=== PATIENT | male | born 1955 | race Caucasian/White ===

== ENCOUNTER 2017-04-28 05:47 | Emergency (ER) | payer SELFPAY ==
--- NOTE | 2017-04-28 12:58 | RAD ---
PORTABLE CHEST: COMPARISON: Multiple previous chest x-rays dating to 09/10/13. FINDINGS: Heart size is within normal limits. There are atherosclerotic changes of the aorta. There are chron ic interstitial fibrotic lung changes. There is a right posterolateral old 5th rib fracture. The ap pearance of this is similar to the previous exams and appears to represent an incompletely healed fra cture. It has a slightly lytic appearance but given the fact that this is stable as compared to the old exams, it is not felt to be of any definite significance. IMPRESSION: Chronic interstitial fibrotic lung change. POS: [facility]
== END 2017-04-28 11:20 | disposition home or self-care (01) ==
LOC: ERS 05:47
DX: J40 Bronchitis, not specified as acute or chronic (principal); J44.9 Chronic obstructive pulmonary disease, unspecified; I10 Essential (primary) hypertension; I48.91 Unspecified atrial fibrillation; E11.9 Type 2 diabetes mellitus without complications; F90.9 Attention-deficit hyperactivity disorder, unspecified type; F17.210 Nicotine dependence, cigarettes, uncomplicated
CPT/HCPCS: 71020; 99406

== ENCOUNTER 2017-05-22 06:57 | Emergency (ER) | payer SELFPAY ==
--- NOTE | 2017-05-22 08:22 | RAD ---
PA AND LATERAL VIEWS CHEST: HISTORY: Cough. Chills. COMPARISON: 04/28/2017 FINDINGS: The heart size is normal. The lungs are well expanded with still chronic changes. Old right postero lateral fifth rib fracture is again seen. No lobar consolidations, pneumothoraces, or pleural effusi ons are seen. IMPRESSION: Chronic changes. No acute process. POS: [facility]
== END 2017-05-22 10:07 | disposition home or self-care (01) ==
LOC: ERS 06:57
DX: J42 Unspecified chronic bronchitis (principal); I10 Essential (primary) hypertension; E11.9 Type 2 diabetes mellitus without complications; F90.9 Attention-deficit hyperactivity disorder, unspecified type; Z71.6 Tobacco abuse counseling; F17.210 Nicotine dependence, cigarettes, uncomplicated; Z79.899 Other long term (current) drug therapy
CPT/HCPCS: 71020; 99406

== ENCOUNTER 2017-05-23 19:35 | Emergency (ER) | payer SELFPAY | END 2017-05-23 21:08 | disposition home or self-care (01) | LOC: ERS 19:35 | DX: J42 Unspecified chronic bronchitis (principal); I10 Essential (primary) hypertension; I48.91 Unspecified atrial fibrillation; E11.9 Type 2 diabetes mellitus without complications; F90.9 Attention-deficit hyperactivity disorder, unspecified type; F17.210 Nicotine dependence, cigarettes, uncomplicated | CPT/HCPCS: 99406 ==

== ENCOUNTER 2017-06-19 08:10 | Emergency (ER) | payer SELFPAY | END 2017-06-19 09:58 | disposition home or self-care (01) | LOC: ERS 08:10 | DX: K05.10 Chronic gingivitis, plaque induced (principal); I10 Essential (primary) hypertension; I48.91 Unspecified atrial fibrillation; E11.9 Type 2 diabetes mellitus without complications; F90.9 Attention-deficit hyperactivity disorder, unspecified type; F17.210 Nicotine dependence, cigarettes, uncomplicated | CPT/HCPCS: 99406 ==

== ENCOUNTER 2017-06-23 20:20 | Emergency (ER) | payer SELFPAY ==
[2017-06-23] MEDS ORDERED: Insulin Regular 300 UNITS/3 ML VIAL ONE (20:46)
[2017-06-23 21:19] LABS: #Eosinphils 0.1 thou/uL (0.0-0.7); #Lymphocytes 1.7 thou/uL (1.20-3.40); #Monocytes 0.2 thou/uL (0.11-0.59); #Neutrophils 3.3 thou/uL (1.40-6.50); %Basophils 0.8 % (0.0-1.0); %Eosinophils 2.3 % (0.0-10.0); %Lymphocytes 32.5 % (21.0-51.0); %Monocytes 3.9 % (0.0-10.0); %Neutrophils 60.6 % (42.0-75.0); Hemoglobin 14.4 g/dL (14.0-18.0); Mean Corpuscular Volume 97.1 fl (80.0-94.0); Mean Platelet Volume 7.6 fL (7.4-10.4); Platelet Count 135 thou/uL (130-400); RBC Distribution Width 12.4 % (11.5-14.5); Red Blood Cell (RBC) Count 4.35 mill/uL (4.70-6.10); White Blood Cell (WBC) Count 5.4 thou/uL (4.8-10.8)
[2017-06-23] MEDS ORDERED: Acetaminophen 500 MG TAB ONE (21:28)
[2017-06-23 21:40] LABS: ALT (SGPT) 20 U/L (8-55); AST (SGOT) 15 U/L (5-34); Albumin 3.5 g/dL (3.4-4.8); Alkaline Phosphatase 64 U/L (40-150); Anion Gap 11 mmol/L (10-20); BUN (Urea Nitrogen) 18 mg/dL (8.4-25.7); Bilirubin, Total 0.4 mg/dL (0.2-1.2); Calc. Creatinine Clearance 0 mL/min (70-130); Calcium 8.3 mg/dL (7.8-10.44); Carbon Dioxide 26 mmol/L (23-31); Chloride 102 mmol/L (98-107); Estimated GFR-MDRD 83; Globulin 2.5 g/dL (2.4-3.5); Glucose 253 mg/dL (80-115); Lipase 14 U/L (8-78); Potassium 3.9 mmol/L (3.5-5.1); Sodium 135 mmol/L (136-145)
== END 2017-06-23 22:35 | disposition home or self-care (01) ==
LOC: ERS 20:20
DX: E11.65 Type 2 diabetes mellitus with hyperglycemia (principal); I10 Essential (primary) hypertension; I48.91 Unspecified atrial fibrillation; F90.9 Attention-deficit hyperactivity disorder, unspecified type; F17.210 Nicotine dependence, cigarettes, uncomplicated; Z79.899 Other long term (current) drug therapy; Z79.84 Long term (current) use of oral hypoglycemic drugs
CPT/HCPCS: 36415; 36416; 80053; 82140; 83690; 85025; 93005; 96374; J1815

== ENCOUNTER 2017-12-06 19:44 | Emergency (ER) | payer SELFPAY ==
[~2017-12-06 19:44] MED LIST: ISOVUE-370 76%-LOCM 1 ML ONE
[2017-12-06 20:40] LABS: #Eosinphils 0.1 thou/uL (0.0-0.7); #Lymphocytes 0.7 thou/uL (1.20-3.40); #Monocytes 0.6 thou/uL (0.11-0.59); #Neutrophils 6.7 thou/uL (1.40-6.50); %Basophils 0.1 % (0.0-1.0); %Eosinophils 0.8 % (0.0-10.0); %Lymphocytes 8.9 % (21.0-51.0); %Monocytes 7.7 % (0.0-10.0); %Neutrophils 82.4 % (42.0-75.0); Hemoglobin 14.3 g/dL (14.0-18.0); Mean Corpuscular HGB CONC 34.3 g/dL (32.0-36.0); Mean Corpuscular Hemoglobin 32.1 pg (27.0-31.0); Mean Corpuscular Volume 93.5 fL (78.0-98.0); Mean Platelet Volume 7.6 fL (7.4-10.4); Platelet Count 101 thou/uL (130-400); RBC Distribution Width 11.4 % (11.5-14.5); Red Blood Cell (RBC) Count 4.45 mill/uL (4.70-6.10); White Blood Cell (WBC) Count 8.2 thou/uL (4.8-10.8)
[2017-12-06 20:48] LABS: ALT (SGPT) 33 U/L (8-55); AST (SGOT) 25 U/L (5-34); Albumin 3.7 g/dL (3.4-4.8); Alkaline Phosphatase 63 U/L (40-150); Anion Gap 12 mmol/L (10-20); BUN (Urea Nitrogen) 22 mg/dL (8.4-25.7); Bilirubin, Total 0.6 mg/dL (0.2-1.2); CK (CPK) 436 U/L (30-200); Calc. Creatinine Clearance 0 mL/min (70-130); Calcium 9.1 mg/dL (7.8-10.44); Carbon Dioxide 26 mmol/L (23-31); Chloride 100 mmol/L (98-107); Estimated GFR-MDRD 69; Globulin 2.9 g/dL (2.4-3.5); Glucose 369 mg/dL (80-115); Potassium 4.2 mmol/L (3.5-5.1); Protein, Total 6.6 g/dL (5.8-8.1); Sodium 134 mmol/L (136-145)
[2017-12-06 20:51] LABS: Large Platelets SLIGHT; MDiff Complete? YES; PLT Morphology Comment Appears Decreased; RBC Morphology Normal; Troponin I Less than 0.010 ng/mL (< 0.028)
--- NOTE | 2017-12-06 20:51 | RAD ---
AP VIEW CHEST: 12/06/17 HISTORY: Left sided chest pain. AP view chest is obtained on 12/06/17. COMPARISON: Comparison made to previous exam from 02/08/17. AP view chest demonstrates EKG leads see over the chest. Pulmonary vascular congestion seen. Air spac e opacities and prominent interstitial markings throughout the lungs. Some of this may represent poss ible interstitial fibrotic changes. No significant interval changes seen since the previous compariso n exam. No newly developed opacities seen. No evidence of pneumothorax seen. IMPRESSION: Prominent lung parenchymal markings; however, this is unchanged since the previous exam. No acute int erval changes seen. POS: [facility]
[2017-12-06 20:58] LABS: CKMB 7.7 ng/mL (0-6.6)
[2017-12-06] MEDS ORDERED: Azithromycin 250 MG TAB ONE (21:21)
[2017-12-06] MEDS ORDERED: Albuterol Sulfate 2.5 mg/3 ml Neb ONE (21:25)
[2017-12-06] MEDS ORDERED: Ketorolac Tromethamine 30 MG/ML VIAL ONE (21:41)
--- NOTE | 2017-12-06 21:47 | CT ---
CTA CHEST 12/06/17 HISTORY: 62-year-old presents with history of left sided chest pain radiating to left flank since yesterday mo rning. The patient reports being short of breath. Contrast enhanced CTA of the chest was performed. 2D and 3D reconstructed images performed on an [employer] 3D workstation. CT images chest demonstrate no evidence of pleural or pericardial effusions. No evidence of filling defects seen in the pulmonary arteries to suggest pulmonary emboli. Extensive interstitial densities seen throughout the lung parenchyma worse on the left than on the ri ght. These interstitial markings are compatible with chronic interstitial fibrosis worse than on the previous comparison exam from 2015. The degree of interstitial change and honeycombing has increased. Incidentally noted calcifications seen in the left main coronary artery. IMPRESSION: Increased interstitial markings throughout the lungs compatible with interstitial fibrosis. POS: [facility]
== END 2017-12-06 23:18 | disposition home or self-care (01) ==
LOC: ERS 19:44
DX: J44.1 Chronic obstructive pulmonary disease with (acute) exacerbation (principal); I10 Essential (primary) hypertension; D69.6 Thrombocytopenia, unspecified; E11.9 Type 2 diabetes mellitus without complications; F90.9 Attention-deficit hyperactivity disorder, unspecified type; F17.210 Nicotine dependence, cigarettes, uncomplicated; Z79.84 Long term (current) use of oral hypoglycemic drugs; Z79.899 Other long term (current) drug therapy
CPT/HCPCS: 71045; 71275; 80053; 82550; 82553; 83880; 84484; 85025; 93005; 94640; 96374; J1885; J7611; J7620

== ENCOUNTER 2017-12-31 20:24 | Emergency (ER) | payer SELFPAY ==
[2017-12-31] MEDS ORDERED: Lidocaine 1% 20 ML MDV ONE (20:35)
[2017-12-31] MEDS ORDERED: Adacel (T-DAP) 0.5 ML VIAL ONE (20:50)
== END 2017-12-31 21:07 | disposition home or self-care (01) ==
LOC: SCSER 20:24
DX: S61.303A Unspecified open wound of left middle finger with damage to nail, initial encounter (principal); J44.9 Chronic obstructive pulmonary disease, unspecified; I10 Essential (primary) hypertension; E11.9 Type 2 diabetes mellitus without complications; F90.9 Attention-deficit hyperactivity disorder, unspecified type; I48.91 Unspecified atrial fibrillation; F17.210 Nicotine dependence, cigarettes, uncomplicated; Z79.84 Long term (current) use of oral hypoglycemic drugs; Z79.899 Other long term (current) drug therapy; W26.0XXA Contact with knife, initial encounter
CPT/HCPCS: 90471; 90715; J2001

== ENCOUNTER 2018-10-01 19:44 | Emergency (ER) | payer SELFPAY ==
[2018-10-01] MEDS ORDERED: Ketorolac Tromethamine 30 MG/ML VIAL ONE (20:39)
[2018-10-01] MEDS ORDERED: Dexamethasone 10 MG/ML VIAL ONE (20:39)
--- NOTE | 2018-10-01 20:46 | RAD ---
XR Chest Pa Lat STANDARD History: [Cough] Comparison: Chest radiograph 2018 Findings: There is pulmonary fibrosis in the lower lobes. Lungs are hypoinflated. Cardiac silhouette and mediastinal contours are similar. Impression: Progressive pulmonary fibrosis.
== END 2018-10-01 21:35 | disposition home or self-care (01) ==
LOC: ERS 19:44
DX: M54.5 Low back pain (principal); R51 Headache; J84.10 Pulmonary fibrosis, unspecified; I48.91 Unspecified atrial fibrillation; E11.9 Type 2 diabetes mellitus without complications; E87.1 Hypo-osmolality and hyponatremia; F90.9 Attention-deficit hyperactivity disorder, unspecified type; F17.210 Nicotine dependence, cigarettes, uncomplicated; Z79.51 Long term (current) use of inhaled steroids; Z79.899 Other long term (current) drug therapy
CPT/HCPCS: 71046; 96372; J1100; J1885

== ENCOUNTER 2019-02-12 16:28 | Emergency (ER) | payer SELFPAY ==
--- NOTE | 2019-02-12 17:55 | RAD ---
EXAM: 2 views of the right tibia/fibula HISTORY: Right leg swelling for one month COMPARISON: None FINDINGS: There is no evidence of acute fracture or dislocation. No soft tissue swelling is seen. Mod erate degenerative changes are seen in the ankle. Surgical clips are seen in the right leg from the knee down to the ankle. IMPRESSION: No evidence of acute osseous abnormality.
--- NOTE | 2019-02-12 18:17 | ULT ---
EXAM: Right lower extremity venous ultrasound HISTORY: Right lower extremity pain COMPARISON: None TECHNIQUE: Multiplanar grayscale and color Doppler images were obtained in a right lower extremity ve nous ultrasound. Spectral analysis of the Doppler waveforms were performed. FINDINGS: The common femoral vein, profunda femoral vein, superficial femoral vein, and popliteal vei n are normal in appearance without visible thrombus. These vessels demonstrate normal compression, flow, and augmentation. The posterior tibial vein and greater saphenous vein are patent without evidence of thrombus. IMPRESSION: No evidence of DVT.
== END 2019-02-12 19:09 | disposition home or self-care (01) ==
LOC: ERS 16:28
DX: M79.89 Other specified soft tissue disorders (principal); I10 Essential (primary) hypertension; I48.91 Unspecified atrial fibrillation; E11.9 Type 2 diabetes mellitus without complications; F90.9 Attention-deficit hyperactivity disorder, unspecified type; F17.210 Nicotine dependence, cigarettes, uncomplicated

== ENCOUNTER 2019-04-27 10:06 | Emergency (ER) | payer SELFPAY ==
--- NOTE | 2019-04-27 10:59 | RAD ---
XR Elbow Lt 4 View STANDARD HISTORY: Left elbow pain FINDINGS: No fracture or dislocation is identified.
--- NOTE | 2019-04-27 11:00 | RAD ---
LEFT HUMERUS 2 VIEWS: HISTORY: left elbow pain, pain in the distal lateral aspect of the left arm FINDINGS: The left humerus is intact.
== END 2019-04-27 12:39 | disposition home or self-care (01) ==
LOC: ERS 10:06
DX: M25.522 Pain in left elbow (principal); J44.9 Chronic obstructive pulmonary disease, unspecified; I48.21 Permanent atrial fibrillation; E11.9 Type 2 diabetes mellitus without complications; F90.9 Attention-deficit hyperactivity disorder, unspecified type; F17.210 Nicotine dependence, cigarettes, uncomplicated

== ENCOUNTER 2019-10-02 17:38 | Emergency (ER) | payer OTHER, SELFPAY ==
--- NOTE | 2019-10-02 18:56 | RAD ---
PORTABLE CHEST: 10/02/19 PROVIDED CLINICAL HISTORY: Cough and shortness of breath. FINDINGS: Comparison 10/01/18. The cardiac and mediastinal silhouette is unchanged in appearance. Fibrotic lung changes are redemons trated. Possible left infrahilar airspace disease. No pleural fluid or pneumothorax apparent. IMPRESSION: Extensive interstitial lung changes are redemonstrated. There is possible superimposed air space dise ase in the right lower lung zone. Correlate with concerns for pneumonia. Follow-up is recommended. POS: [facility]
== END 2019-10-02 19:21 | disposition home or self-care (01) ==
LOC: ERS 17:38
DX: J18.9 Pneumonia, unspecified organism (principal); J44.9 Chronic obstructive pulmonary disease, unspecified; I10 Essential (primary) hypertension; I48.91 Unspecified atrial fibrillation; E87.1 Hypo-osmolality and hyponatremia; D69.6 Thrombocytopenia, unspecified; E11.9 Type 2 diabetes mellitus without complications; F90.9 Attention-deficit hyperactivity disorder, unspecified type; F17.210 Nicotine dependence, cigarettes, uncomplicated
CPT/HCPCS: 71045

== ENCOUNTER 2019-12-12 19:40 | Emergency (ER) | payer OTHER, SELFPAY ==
[2019-12-13 12:29] LABS: SARS-CoV-2 MS2 Positive; SARS-CoV-2 N Gene Negative; SARS-CoV-2 S Gene Negative; SARS-CoV-2 orf1ab Negative
== END 2019-12-12 20:07 | disposition home or self-care (01) ==
LOC: ERS 19:40
DX: R51 Headache (principal); R53.83 Other fatigue; Z20.828 Contact with and (suspected) exposure to other viral communicable diseases; J44.9 Chronic obstructive pulmonary disease, unspecified; I10 Essential (primary) hypertension; I48.91 Unspecified atrial fibrillation; E11.9 Type 2 diabetes mellitus without complications; F90.9 Attention-deficit hyperactivity disorder, unspecified type; F17.210 Nicotine dependence, cigarettes, uncomplicated; Z79.51 Long term (current) use of inhaled steroids
CPT/HCPCS: 87635; 99284; U0003

== ENCOUNTER 2020-07-25 16:21 | Emergency (ER) | payer OTHER, SELFPAY ==
[2020-07-25 17:33] LABS: #Basophils 0.1 thou/uL (0.0-0.2); #Eosinphils 0.2 thou/uL (0.0-0.7); #Lymphocytes 2.3 thou/uL (1.20-3.40); #Monocytes 0.8 thou/uL (0.11-0.59); #Neutrophils 5.8 thou/uL (1.40-6.50); %Basophils 0.6 % (0.0-1.0); %Eosinophils 2.3 % (0.0-10.0); %Lymphocytes 25.3 % (21.0-51.0); %Monocytes 8.7 % (0.0-10.0); %Neutrophils 63.1 % (42.0-75.0); Mean Corpuscular Hemoglobin 32.7 pg (27.0-31.0); Mean Corpuscular Volume 96.3 fL (78.0-98.0); Mean Platelet Volume 7.7 fL (7.4-10.4); Platelet Count 152 thou/uL (130-400); RBC Distribution Width 12.1 % (11.5-14.5); Red Blood Cell (RBC) Count 5.21 mill/uL (4.70-6.10); White Blood Cell (WBC) Count 9.2 thou/uL (4.8-10.8)
[2020-07-25 17:37] LABS: ALT (SGPT) 40 U/L (8-55); AST (SGOT) 20 U/L (5-34); Albumin 3.7 g/dL (3.4-4.8); Alkaline Phosphatase 58 U/L (40-110); Anion Gap 14 mmol/L (10-20); BUN (Urea Nitrogen) 34 mg/dL (8.4-25.7); Bilirubin, Total 0.6 mg/dL (0.2-1.2); Calc. Creatinine Clearance 0 mL/min (70-130); Calcium 9.3 mg/dL (7.8-10.44); Carbon Dioxide 26 mmol/L (23-31); Chloride 95 mmol/L (98-107); Globulin 3.2 g/dL (2.4-3.5); Glucose 267 mg/dL (80-115); Potassium 4.3 mmol/L (3.5-5.1); Protein, Total 6.9 g/dL (5.8-8.1); Sodium 131 mmol/L (136-145)
--- NOTE | 2020-07-25 17:56 | RAD ---
CHEST TWO VIEWS: History: Cough Comparison: 01-06-2020 FINDINGS: Patient has known prior interstitial lung changes which have been noted previously. Diffuse interstit ial thickening with areas of nodular opacity in both lungs appear stable. No consolidation or focal i nfiltrate. Superimposed interstitial process cannot be completely excluded. IMPRESSION: Chronic interstitial changes are again noted with no definite acute process apparent when compared to prior study. POS: [facility]
[2020-07-25] MEDS ORDERED: predniSONE 20 MG TAB ONE (18:24)
[2020-07-25] MEDS ORDERED: Albuterol 200 PUFF (6.7GM INHALER) ONE (19:11)
[2020-07-26 01:55] LABS: SARS-CoV-2 PCR by NAA Not Detected (NotDetected)
== END 2020-07-25 19:44 | disposition home or self-care (01) ==
LOC: ERS 16:21
DX: J44.1 Chronic obstructive pulmonary disease with (acute) exacerbation (principal); E11.65 Type 2 diabetes mellitus with hyperglycemia; E87.1 Hypo-osmolality and hyponatremia; Z20.822 Contact with and (suspected) exposure to COVID-19; I10 Essential (primary) hypertension; I48.91 Unspecified atrial fibrillation; Z86.718 Personal history of other venous thrombosis and embolism; F17.210 Nicotine dependence, cigarettes, uncomplicated; Z79.84 Long term (current) use of oral hypoglycemic drugs; Z79.899 Other long term (current) drug therapy
CPT/HCPCS: 36415; 71046; 80053; 85025; 87635; 94664; J7512; U0003; U0005

== ENCOUNTER 2021-05-18 11:55 | Outpatient (CLI) | payer MEDICARE, OTHER ==
[2021-05-18 22:44] LABS: SARS-CoV-2 PCR by NAA Not Detected (NotDetected)
== END 2021-05-18 11:56 | disposition home or self-care (01) ==
LOC: LABBT 11:55
PROVIDERS: ATTEND Ophthalmology Retina Specialist
DX: Z01.812 Encounter for preprocedural laboratory examination (principal); Z20.822 Contact with and (suspected) exposure to COVID-19
CPT/HCPCS: U0003; U0005

== ENCOUNTER 2021-05-23 06:14 | Day surgery (SDC) | payer OTHER ==
[2021-05-23] MEDS ORDERED: Fentanyl 100 MCG/2 ML VIAL ONE (06:22)
[2021-05-23] MEDS ORDERED: Midazolam HCl 2 mg/2 ml Vial ONE (06:22)
[2021-05-23] MEDS ORDERED: Phenylephrine 2.5% Ophth Soln 5 ML BOT ONE (06:26)
[2021-05-23] MEDS ORDERED: Cyclopentolate 1% Opth Drop 2 ML BOT ONE (06:26)
[2021-05-23] MEDS ORDERED: EPINEPHrine 0.3 MG in Ophthalmic Irrigation Solution 500 ML IRR SCH (07:00)
== END 2021-05-23 07:58 | disposition home or self-care (01) ==
LOC: SDC 06:14
PROVIDERS: ATTEND Ophthalmology Retina Specialist
DX: H43.391 Other vitreous opacities, right eye (principal); Z53.8 Procedure and treatment not carried out for other reasons; Z88.5 Allergy status to narcotic agent
CPT/HCPCS: J0171; J2250; J3010

== ENCOUNTER 2021-10-17 17:11 | Emergency (ER) | payer MEDICARE, MEDICAID, OTHER | END 2021-10-17 19:24 | disposition home or self-care (01) | LOC: ERS 17:11 | DX: R07.89 Other chest pain (principal); I10 Essential (primary) hypertension; E11.9 Type 2 diabetes mellitus without complications; J44.9 Chronic obstructive pulmonary disease, unspecified; I48.91 Unspecified atrial fibrillation; F17.210 Nicotine dependence, cigarettes, uncomplicated; D69.6 Thrombocytopenia, unspecified | CPT/HCPCS: 71046; 99283 ==

== ENCOUNTER 2022-03-21 17:59 | Observation (INO) | payer MEDICARE, MEDICAID ==
[~2022-03-21 17:59] MED LIST changes: -ISOVUE-370 76%-LOCM 1 ML ONE; +Iopamidol-370 76% 500 ML 1 ML ONE
[2022-03-21 20:30] LABS: #Eosinphils 0.2 thou/uL (0.0-0.7); #Lymphocytes 1.9 thou/uL (1.20-3.40); #Monocytes 0.6 thou/uL (0.11-0.59); #Neutrophils 4.3 thou/uL (1.40-6.50); %Basophils 0.5 % (0.0-1.0); %Eosinophils 2.2 % (0.0-10.0); %Lymphocytes 26.9 % (21.0-51.0); %Monocytes 8.7 % (0.0-10.0); %Neutrophils 61.6 % (42.0-75.0); Hemoglobin 16.5 g/dL (14.0-18.0); Mean Corpuscular HGB CONC 32.8 g/dL (32.0-36.0); Mean Corpuscular Hemoglobin 33.4 pg (27.0-31.0); Mean Platelet Volume 7.7 fL (7.4-10.4); Platelet Count 140 thou/uL (130-400); RBC Distribution Width 11.8 % (11.5-14.5); Red Blood Cell (RBC) Count 4.93 mill/uL (4.70-6.10); White Blood Cell (WBC) Count 6.9 thou/uL (4.8-10.8)
[2022-03-21 20:52] LABS: ALT (SGPT) 54 U/L (8-55); AST (SGOT) 53 U/L (5-34); Alkaline Phosphatase 69 U/L (40-110); Anion Gap 15 mmol/L (10-20); BUN (Urea Nitrogen) 30 mg/dL (8.4-25.7); Bilirubin, Total 0.6 mg/dL (0.2-1.2); Calc. Creatinine Clearance 0 mL/min (70-130); Calcium 9.4 mg/dL (7.8-10.44); Carbon Dioxide 27 mmol/L (23-31); Chloride 99 mmol/L (98-107); Estimated GFR 95; Globulin 3.2 g/dL (2.4-3.5); Glucose 96 mg/dL (80-115); Protein, Total 7.2 g/dL (5.8-8.1); Sodium 137 mmol/L (136-145)
[2022-03-21] MEDS ORDERED: Ondansetron ODT 4 MG TAB PO PRN (23:33)
[2022-03-21] MEDS ORDERED: Acetaminophen 650 MG Suppository PR PRN (23:33)
[2022-03-21] MEDS ORDERED: Ondansetron PF 4 MG/2 ML Vial IVP PRN (23:33)
[2022-03-21] MEDS ORDERED: Dextrose 50% Abboject 50 ML SYRINGE SLOW IVP PRN (23:33)
[2022-03-21] MEDS ORDERED: Dextrose 5% in Water 1,000 ML IV PRN (23:33)
[2022-03-21] MEDS ORDERED: Acetaminophen 325 MG TAB PO PRN (23:33)
[2022-03-21] MEDS ORDERED: HumaLOG 300 UNITS/3 ML VIAL SC PRN (23:33)
[2022-03-22] MEDS: Ketorolac Tromethamine 30 MG/ML VIAL IVP PRN ×2 (01:07→10:04)
[2022-03-22 03:02] VITALS: BMI 23.0
[2022-03-22 06:35] LABS: #Eosinphils 0.2 thou/uL (0.0-0.7); #Lymphocytes 1.6 thou/uL (1.20-3.40); #Monocytes 0.7 thou/uL (0.11-0.59); #Neutrophils 3.3 thou/uL (1.40-6.50); %Basophils 0.5 % (0.0-1.0); %Lymphocytes 27.6 % (21.0-51.0); %Monocytes 11.9 % (0.0-10.0); Hemoglobin 15.6 g/dL (14.0-18.0); Mean Corpuscular HGB CONC 32.5 g/dL (32.0-36.0); Mean Corpuscular Hemoglobin 33.6 pg (27.0-31.0); Mean Platelet Volume 7.8 fL (7.4-10.4); Platelet Count 127 thou/uL (130-400); RBC Distribution Width 11.8 % (11.5-14.5); Red Blood Cell (RBC) Count 4.64 mill/uL (4.70-6.10); White Blood Cell (WBC) Count 5.8 thou/uL (4.8-10.8)
[2022-03-22 06:56] LABS: Anion Gap 10 mmol/L (10-20); BUN (Urea Nitrogen) 29 mg/dL (8.4-25.7); Calc. Creatinine Clearance 72 mL/min (70-130); Calcium 8.7 mg/dL (7.8-10.44); Carbon Dioxide 30 mmol/L (23-31); Chloride 99 mmol/L (98-107); Estimated GFR 77; Glucose 107 mg/dL (80-115); Potassium 4.3 mmol/L (3.5-5.1); Sodium 135 mmol/L (136-145)
[2022-03-22] MEDS: Enoxaparin Sodium 40 MG/0.4 ML SYRINGE SC SCH (07:55)
[2022-03-22] MEDS: Cyanocobalamin (Vitamin B-12) 1,000 MCG TAB PO SCH (10:01)
[2022-03-22] MEDS: Morphine 4 MG/ML VIAL SLOW IVP PRN ×2 (13:17→22:24)
[2022-03-22] MEDS ORDERED: traMADol HCl 50 MG TAB PO PRN (17:03)
[2022-03-22] MEDS: HumaLOG 300 UNITS/3 ML VIAL SC PRN (17:13)
[2022-03-22] MEDS ORDERED: Temazepam 15 MG CAP PO PRN (19:29)
[2022-03-22] MEDS: Senokot S 8.6-50 MG TAB PO SCH (20:53)
[2022-03-22] MEDS ORDERED: Atorvastatin Calcium 20 MG TAB PO SCH (21:00)
[2022-03-23 03:17] VITALS: TEMP 98.6
[2022-03-23] MEDS ORDERED: Heparin 10,000 UNITS/ 10 ML VIAL ONE (06:36)
[2022-03-23] MEDS ORDERED: Lidocaine 1% (PF) 30 ML VIAL ONE (06:36)
[2022-03-23 06:44] LABS: Anion Gap 9 mmol/L (10-20); BUN (Urea Nitrogen) 22 mg/dL (8.4-25.7); Calc. Creatinine Clearance 87 mL/min (70-130); Calcium 8.9 mg/dL (7.8-10.44); Carbon Dioxide 30 mmol/L (23-31); Chloride 100 mmol/L (98-107); Estimated GFR 95; Glucose 146 mg/dL (80-115); Potassium 4.2 mmol/L (3.5-5.1); Sodium 135 mmol/L (136-145)
[2022-03-23 07:39] LABS: #Eosinphils 0.1 thou/uL (0.0-0.7); #Lymphocytes 1.3 thou/uL (1.20-3.40); #Monocytes 0.6 thou/uL (0.11-0.59); #Neutrophils 2.8 thou/uL (1.40-6.50); %Basophils 0.3 % (0.0-1.0); %Eosinophils 2.8 % (0.0-10.0); %Lymphocytes 26.7 % (21.0-51.0); %Monocytes 11.9 % (0.0-10.0); %Neutrophils 58.3 % (42.0-75.0); Hemoglobin 15.4 g/dL (14.0-18.0); Mean Corpuscular HGB CONC 32.3 g/dL (32.0-36.0); Mean Corpuscular Hemoglobin 33.2 pg (27.0-31.0); Mean Platelet Volume 8.1 fL (7.4-10.4); Platelet Count 113 thou/uL (130-400); RBC Distribution Width 11.7 % (11.5-14.5); Red Blood Cell (RBC) Count 4.65 mill/uL (4.70-6.10); White Blood Cell (WBC) Count 4.9 thou/uL (4.8-10.8)
[2022-03-23] MEDS: Senokot S 8.6-50 MG TAB PO SCH (08:15)
[2022-03-23] MEDS: Cyanocobalamin (Vitamin B-12) 1,000 MCG TAB PO SCH (08:17)
[2022-03-23] MEDS: Enoxaparin Sodium 40 MG/0.4 ML SYRINGE SC SCH ×2 (08:17→08:24)
[2022-03-23] MEDS ORDERED: Lisinopril 10 MG TAB PO SCH (09:00)
[2022-03-23] MEDS ORDERED: Folic Acid 1 MG TAB PO SCH (09:00)
[2022-03-23] MEDS ORDERED: Aspirin Chewable 81 MG TAB PO SCH (09:00)
[2022-03-23] MEDS ORDERED: Multivit, Therapeutic 1 TAB PO SCH (09:00)
[2022-03-23] MEDS ORDERED: Aspirin 81 mg Enteric Coated Tablet PO SCH (09:00)
[2022-03-23] MEDS ORDERED: Lisinopril/Hydrochlorothiazide 20/25 mg Tablet PO SCH (09:00)
[2022-03-23] MEDS ORDERED: Iopamidol 370 76% 50 ML VIAL FS ONE (09:55)
[2022-03-23] MEDS: HumaLOG 300 UNITS/3 ML VIAL SC PRN (12:06)
[2022-03-23 12:38] VITALS: BP 133/74
[2022-03-25] MEDS ORDERED: FLU VACC QS2022-23(65YR UP)/PF 240 MCG/0.7 ML SYRINGE IM ONE (09:00)
== END 2022-03-23 14:32 | disposition home or self-care (01) ==
LOC: ERS 17:59 → T4-A 23:18
PROVIDERS: ADMIT Internal Medicine; ATTEND Internal Medicine
PROC: B41F1ZZ Fluoroscopy of Right Lower Extremity Arteries using Low Osmolar Contrast (ICD-10-PCS; principal; 2022-03-23)
DX: E11.51 Type 2 diabetes mellitus with diabetic peripheral angiopathy without gangrene (principal); I70.203 Unspecified atherosclerosis of native arteries of extremities, bilateral legs; I48.91 Unspecified atrial fibrillation; F17.210 Nicotine dependence, cigarettes, uncomplicated; J44.9 Chronic obstructive pulmonary disease, unspecified; I70.0 Atherosclerosis of aorta; I25.10 Atherosclerotic heart disease of native coronary artery without angina pectoris; E78.5 Hyperlipidemia, unspecified; D69.6 Thrombocytopenia, unspecified; E87.1 Hypo-osmolality and hyponatremia; I10 Essential (primary) hypertension; Z79.84 Long term (current) use of oral hypoglycemic drugs; Z79.899 Other long term (current) drug therapy; Z88.8 Allergy status to other drugs, medicaments and biological substances; Z88.5 Allergy status to narcotic agent; Z89.411 Acquired absence of right great toe; Z95.820 Peripheral vascular angioplasty status with implants and grafts; Z20.822 Contact with and (suspected) exposure to COVID-19
CPT/HCPCS: 36140; 36245; 75635; 75710; 80048 ×2; 80053; 82962 ×2; 85025 ×3; 85379; 93923; 93971; 96372; 96374; 96375; 99285; C1769 ×2; C1894 ×2; G0378 ×3; U0003; U0005; 36415; 36416; J1644; J1650; J1815; J1885; J2001; J2270; Q9967

== ENCOUNTER 2022-07-24 07:53 | Outpatient (CLI) | payer OTHER, MEDICAID | END 2022-07-24 07:54 | disposition home or self-care (01) | LOC: TBSIIMAG 07:53 | PROVIDERS: ATTEND Nurse Practitioner Family | DX: Z01.89 Encounter for other specified special examinations (principal) | CPT/HCPCS: 70551 ==

== ENCOUNTER 2022-09-20 06:02 | Inpatient (IN) | payer OTHER ==
[2022-09-20] MEDS ORDERED: Ketorolac Tromethamine 30 MG/ML VIAL ONE (07:42)
[2022-09-20] MEDS ORDERED: Ondansetron PF 4 MG/2 ML Vial IVP PRN (12:46)
[2022-09-20] MEDS ORDERED: Dextrose 5% in Water 1,000 ML IV PRN (12:46)
[2022-09-20] MEDS ORDERED: Dextrose 50% Abboject 50 ML SYRINGE SLOW IVP PRN (12:46)
[2022-09-20] MEDS: Mometasone 200 MCG/Formoterol 5 MCG 120 PUFF INHALER INH SCH (19:38)
[2022-09-20 19:53] VITALS: BMI 26.4
[2022-09-20] MEDS: HYDROcodone/Acetaminophen 7.5/325 mg Tablet PO PRN (19:57)
[2022-09-20] MEDS: Temazepam 15 MG CAP PO SCH (19:57)
[2022-09-20] MEDS: metFORMIN 500 MG TAB PO SCH (19:57)
[2022-09-20] MEDS: Morphine 4 MG/ML VIAL SLOW IVP PRN (21:19)
[2022-09-21] MEDS: HYDROcodone/Acetaminophen 7.5/325 mg Tablet PO PRN ×4 (04:25→20:31)
[2022-09-21] MEDS: Morphine 4 MG/ML VIAL SLOW IVP PRN ×4 (04:25→22:24)
[2022-09-21] MEDS: Nicotine 21 MG PATCH TD SCH (05:36)
[2022-09-21 06:48] LABS: ALT (SGPT) 33 U/L (8-55); AST (SGOT) 24 U/L (5-34); Albumin 3.3 g/dL (3.4-4.8); Alkaline Phosphatase 55 U/L (40-110); Anion Gap 14 mmol/L (10-20); BUN (Urea Nitrogen) 20 mg/dL (8.4-25.7); Bilirubin, Total 0.5 mg/dL (0.2-1.2); Calc. Creatinine Clearance 92 mL/min (70-130); Calcium 8.7 mg/dL (7.8-10.44); Carbon Dioxide 31 mmol/L (23-31); Chloride 96 mmol/L (98-107); Estimated GFR 91; Globulin 2.8 g/dL (2.4-3.5); Glucose 139 mg/dL (80-115); Potassium 4.3 mmol/L (3.5-5.1); Protein, Total 6.1 g/dL (5.8-8.1); Sodium 137 mmol/L (136-145)
[2022-09-21] MEDS ORDERED: Fioricet 325/50/40 mg Tablet PO PRN (07:26)
[2022-09-21] MEDS: Mometasone 200 MCG/Formoterol 5 MCG 120 PUFF INHALER INH SCH ×2 (07:31→20:08)
[2022-09-21] MEDS ORDERED: Nystatin 100,000 Units/mL UDCUP SSW SCH (09:00)
[2022-09-21] MEDS ORDERED: Non-Formulary Item 1 EACH (Vitamin B Complex [Vitamin B Complex] 1 EACH Tablet) PO SCH (09:00)
[2022-09-21] MEDS ORDERED: Aspirin Chewable 81 MG TAB PO SCH (09:00)
[2022-09-21] MEDS ORDERED: VITAMIN E MIXED 1000 UNIT PO SCH (09:00)
[2022-09-21] MEDS ORDERED: NICOTINE TD SCH (09:00)
[2022-09-21] MEDS: Nystatin 500,000 UNITS/5 ML UDCUP SSW SCH ×4 (09:17→20:33)
[2022-09-21] MEDS: Cyanocobalamin (Vitamin B-12) 1,000 MCG TAB PO SCH (09:17)
[2022-09-21] MEDS: Multivitamin w/Zinc Stress 1 TAB PO SCH (09:17)
[2022-09-21] MEDS: Lisinopril/Hydrochlorothiazide 20/25 mg Tablet PO SCH (09:17)
[2022-09-21] MEDS: glipiZIDE 10 MG TAB PO SCH (09:18)
[2022-09-21] MEDS: Atorvastatin Calcium 10 MG TAB PO SCH (09:18)
[2022-09-21] MEDS: Cholecalciferol (Vitamin D3) 400 UNITS TAB PO SCH (09:18)
[2022-09-21] MEDS: CO Q-10 CAPSULE 100 MG PO SCH (09:18)
[2022-09-21] MEDS: metFORMIN 500 MG TAB PO SCH ×2 (09:18→16:30)
[2022-09-21] MEDS ORDERED: CEFAZOLIN 2 GM in Sodium Chloride 0.9% 100 ML IVPB SCH (09:30)
[2022-09-21] MEDS ORDERED: Magnevist 469MG/ML 20 ML VIAL ONE (10:45)
[2022-09-21] MEDS: HumaLOG 300 UNITS/3 ML VIAL SC PRN (12:54)
[2022-09-21] MEDS: Acetaminophen 325 MG TAB PO PRN (20:31)
[2022-09-21] MEDS: Temazepam 15 MG CAP PO SCH (20:31)
[2022-09-22] MEDS: HYDROcodone/Acetaminophen 7.5/325 mg Tablet PO PRN ×4 (05:49→20:05)
[2022-09-22] MEDS: Nicotine 21 MG PATCH TD SCH (05:49)
[2022-09-22] MEDS ORDERED: Sodium Chloride 0.9% 500 ML IV SCH (06:15)
[2022-09-22] MEDS ORDERED: Acetaminophen 500 MG TAB PO SCH (06:15)
[2022-09-22] MEDS: Morphine 4 MG/ML VIAL SLOW IVP PRN ×3 (06:20→18:26)
[2022-09-22 06:41] LABS: Hemoglobin 19.3 g/dL (14.0-18.0); Mean Corpuscular HGB CONC 35.8 g/dL (32.0-36.0); Mean Corpuscular Hemoglobin 35.8 pg (27.0-31.0); Mean Corpuscular Volume 99.9 fl (78.0-98.0); White Blood Cell (WBC) Count 13.9 10x3/uL (4.8-10.8)
[2022-09-22 06:44] LABS: Lactic Acid 2.4 mmol/L (0.5-2.2)
[2022-09-22 06:47] LABS: ALT (SGPT) 34 U/L (8-55); AST (SGOT) 23 U/L (5-34); Albumin 3.9 g/dL (3.4-4.8); Alkaline Phosphatase 69 U/L (40-110); Anion Gap 17 mmol/L (10-20); BUN (Urea Nitrogen) 21 mg/dL (8.4-25.7); Bilirubin, Total 1.2 mg/dL (0.2-1.2); Calc. Creatinine Clearance 88 mL/min (70-130); Calcium 9.9 mg/dL (7.8-10.44); Carbon Dioxide 30 mmol/L (23-31); Chloride 91 mmol/L (98-107); Estimated GFR 87; Globulin 3.6 g/dL (2.4-3.5); Glucose 183 mg/dL (80-115); Magnesium 1.4 mg/dL (1.6-2.6); Potassium 4.7 mmol/L (3.5-5.1); Protein, Total 7.5 g/dL (5.8-8.1); Sodium 133 mmol/L (136-145)
[2022-09-22 06:53] LABS: Band 2 % (5-11); Eosinophils 1 % (0-10); Lymphocytes 7 % (21-51); MDiff Complete? YES; Macrocytosis SLIGHT = 6-15 cells (100X) (0-5/hpf); Mean Platelet Volume 8.5 fL (7.4-10.4); Monocytes 5 % (0-10); Neutrophil 85 % (42-75); Ovalocytes SLIGHT = 2-5 cells (100X) (0-1/hpf); Platelet Count 116 10x3/uL (130-400); Platelet Morphology Comment Appears Decreased; RBC Distribution Width 12.1 % (11.5-14.5)
[2022-09-22] MEDS ORDERED: Magnesium 2 GM/50 ML(in water) 2 GM in Premix Bag 1 BAG IVPB SCH (07:30)
[2022-09-22] MEDS ORDERED: Magnesium Sulfate 2 GM in Sodium Chloride 0.9% 100 ML IVPB SCH (07:30)
[2022-09-22 07:51] LABS: Bacteria/HPF None Seen HPF (None Seen); Bilirubin Negative (Negative); Blood, Urine Negative (Negative); CAUTI Indications for Culture Fever or rigors; Clarity Clear (Clear); Glucose, Urine (Dipstick) Normal (Negative); Ketone, Urine 20 mg/dL (Negative); Leukocyte Negative Leu/uL (Negative); Nitrite Negative (Negative); Protein, Urine (Dipstick) 70 mg/dL (Neg-Trace); RBC/HPF 0-3 HPF (0-3); Specific Gravity, Urine 1.028 (1.002-1.036); Squamous Epithelial 0-3 HPF (0-3); WBC/HPF 0-3 HPF (0-3); pH, Urine 6.5 (5.0-9.0)
[2022-09-22] MEDS: Mometasone 200 MCG/Formoterol 5 MCG 120 PUFF INHALER INH SCH ×2 (08:00→19:03)
[2022-09-22] MEDS ORDERED: Cefepime 1 GM in Sodium Chloride 0.9% 100 ML IVPB SCH ×2 (08:00→09:00)
[2022-09-22 08:09] LABS: Urine Culture Reflex No No
[2022-09-22] MEDS: CO Q-10 CAPSULE 100 MG PO SCH (08:53)
[2022-09-22] MEDS: glipiZIDE 10 MG TAB PO SCH (08:53)
[2022-09-22] MEDS: Multivitamin w/Zinc Stress 1 TAB PO SCH (08:53)
[2022-09-22] MEDS: Atorvastatin Calcium 10 MG TAB PO SCH (08:53)
[2022-09-22] MEDS: Cholecalciferol (Vitamin D3) 400 UNITS TAB PO SCH (08:53)
[2022-09-22] MEDS: Lisinopril/Hydrochlorothiazide 20/25 mg Tablet PO SCH (08:53)
[2022-09-22] MEDS: Cyanocobalamin (Vitamin B-12) 1,000 MCG TAB PO SCH (08:53)
[2022-09-22] MEDS: Sodium Chloride 0.9% 1,000 ML IV SCH ×2 (08:54→16:07)
[2022-09-22] MEDS: VANCOMYCIN 1.25 GM/250 ML BAG 1.25 GM in Premix Bag 1 BAG IVPB SCH ×2 (09:57→21:31)
[2022-09-22] MEDS: Nystatin 500,000 UNITS/5 ML UDCUP SSW SCH ×4 (09:57→20:04)
[2022-09-22 11:01] LABS: SARS-CoV-2 NAA Rapid Test Not Detected (NotDetected)
[2022-09-22] MEDS: HumaLOG 300 UNITS/3 ML VIAL SC PRN (14:03)
[2022-09-22] MEDS: Temazepam 15 MG CAP PO SCH (20:05)
[2022-09-22] MEDS: Cefepime 2 GM in Sodium Chloride 0.9% 100 ML IVPB SCH (20:05)
[2022-09-23] MEDS: Morphine 4 MG/ML VIAL SLOW IVP PRN (04:36)
[2022-09-23] MEDS: Sodium Chloride 0.9% 1,000 ML IV SCH ×3 (04:37→17:57)
[2022-09-23] MEDS: Nicotine 21 MG PATCH TD SCH (05:19)
[2022-09-23] MEDS: HumaLOG 300 UNITS/3 ML VIAL SC PRN ×4 (06:12→21:22)
[2022-09-23] MEDS: Lisinopril/Hydrochlorothiazide 20/25 mg Tablet PO SCH (08:34)
[2022-09-23] MEDS: VANCOMYCIN 1.25 GM/250 ML BAG 1.25 GM in Premix Bag 1 BAG IVPB SCH (08:34)
[2022-09-23] MEDS: Cefepime 2 GM in Sodium Chloride 0.9% 100 ML IVPB SCH ×2 (08:34→20:17)
[2022-09-23] MEDS: Nystatin 500,000 UNITS/5 ML UDCUP SSW SCH ×4 (08:34→20:15)
[2022-09-23] MEDS: Mometasone 200 MCG/Formoterol 5 MCG 120 PUFF INHALER INH SCH ×2 (09:07→18:31)
[2022-09-23] MEDS ORDERED: fentaNYL PF 100 MCG/2 ML SYRINGE ONE (10:41)
[2022-09-23] MEDS ORDERED: Lidocaine 1% PF 5 ML VIAL ONE (11:12)
[2022-09-23] MEDS ORDERED: Glycopyrrolate 0.2 MG/ML 5 ML SYRINGE ONE (11:12)
[2022-09-23] MEDS ORDERED: Ondansetron PF 4 MG/2 ML Vial ONE (11:12)
[2022-09-23] MEDS ORDERED: PROPOFOL 200 MG/20 ML VIAL ONE (11:12)
[2022-09-23] MEDS ORDERED: Dexamethasone 20 MG/5 ML VIAL ONE (11:12)
[2022-09-23] MEDS ORDERED: NEOSTIGMINE 3 MG/3 ML SYR 3 MG/3 ML SYRINGE ONE (11:12)
[2022-09-23] MEDS ORDERED: PHENYLEPHRINE-NS 100 MCG/ML 10 ML SYRINGE ONE (11:12)
[2022-09-23] MEDS ORDERED: Rocuronium Bromide 10 MG/ML (10ML VIAL) ONE (11:12)
[2022-09-23] MEDS ORDERED: Promethazine HCl 25 MG/ML VIAL IM PRN (12:08)
[2022-09-23] MEDS ORDERED: Ondansetron HCl/PF 4 MG/2 ML Vial IVP PRN (12:08)
[2022-09-23] MEDS ORDERED: fentaNYL 50 mcg/mL 1 mL Vial ONE ×2 (12:22→12:35)
[2022-09-23] MEDS: Cyanocobalamin (Vitamin B-12) 1,000 MCG TAB PO SCH (13:19)
[2022-09-23] MEDS: glipiZIDE 10 MG TAB PO SCH (13:19)
[2022-09-23] MEDS: Atorvastatin Calcium 10 MG TAB PO SCH (13:19)
[2022-09-23] MEDS: Cholecalciferol (Vitamin D3) 400 UNITS TAB PO SCH (13:19)
[2022-09-23] MEDS: Multivitamin w/Zinc Stress 1 TAB PO SCH (13:20)
[2022-09-23] MEDS: CO Q-10 CAPSULE 100 MG PO SCH (13:20)
[2022-09-23] MEDS ORDERED: HYDROcodone/Acetaminophen 10/325 mg Tablet PO PRN (13:47)
[2022-09-23] MEDS ORDERED: CEFAZOLIN 2 GM in Sodium Chloride 0.9% 100 ML IVPB SCH (14:00)
[2022-09-23] MEDS: HYDROcodone/Acetaminophen 10/325 mg Tablet PO PRN ×3 (14:08→22:02)
[2022-09-23] MEDS: Temazepam 15 MG CAP PO SCH (20:15)
[2022-09-23 20:39] LABS: Vancomycin, Trough 10.3 ug/mL
[2022-09-23] MEDS: VANCOMYCIN 1.75 GM/500 ML BAG 1.75 GM in Premix Bag 1 BAG IVPB SCH (21:23)
[2022-09-24] MEDS: Sodium Chloride 0.9% 1,000 ML IV SCH ×2 (02:16→11:58)
[2022-09-24] MEDS: HYDROcodone/Acetaminophen 10/325 mg Tablet PO PRN ×5 (04:02→21:52)
[2022-09-24] MEDS: Nicotine 21 MG PATCH TD SCH (05:14)
[2022-09-24] MEDS: HumaLOG 300 UNITS/3 ML VIAL SC PRN ×4 (06:04→21:55)
[2022-09-24] MEDS: Mometasone 200 MCG/Formoterol 5 MCG 120 PUFF INHALER INH SCH ×2 (06:49→19:05)
[2022-09-24 07:02] LABS: #Lymphocytes 0.5 thou/uL (1.20-3.40); #Monocytes 0.5 thou/uL (0.11-0.59); #Neutrophils 6.7 thou/uL (1.40-6.50); %Basophils 0.2 % (0.0-1.0); %Eosinophils 0.1 % (0.0-10.0); %Lymphocytes 6.1 % (21.0-51.0); %Monocytes 6.7 % (0.0-10.0); Hemoglobin 14.1 g/dL (14.0-18.0); Mean Corpuscular HGB CONC 35.6 g/dL (32.0-36.0); Mean Corpuscular Hemoglobin 35.5 pg (27.0-31.0); Mean Corpuscular Volume 99.6 fl (78.0-98.0); Platelet Count 97 10x3/uL (130-400); RBC Distribution Width 11.6 % (11.5-14.5); Red Blood Cell (RBC) Count 3.96 mill/uL (4.70-6.10); White Blood Cell (WBC) Count 7.8 10x3/uL (4.8-10.8)
[2022-09-24 07:12] LABS: Anion Gap 13 mmol/L (10-20); BUN (Urea Nitrogen) 22 mg/dL (8.4-25.7); Calc. Creatinine Clearance 110 mL/min (70-130); Carbon Dioxide 25 mmol/L (23-31); Chloride 99 mmol/L (98-107); Estimated GFR 98; Glucose 267 mg/dL (80-115); Potassium 5.2 mmol/L (3.5-5.1); Sodium 132 mmol/L (136-145)
[2022-09-24] MEDS: Cefepime 2 GM in Sodium Chloride 0.9% 100 ML IVPB SCH ×2 (08:03→20:56)
[2022-09-24] MEDS: glipiZIDE 10 MG TAB PO SCH (08:05)
[2022-09-24] MEDS: Lisinopril/Hydrochlorothiazide 20/25 mg Tablet PO SCH (08:05)
[2022-09-24] MEDS: Cyanocobalamin (Vitamin B-12) 1,000 MCG TAB PO SCH (08:05)
[2022-09-24] MEDS: Multivitamin w/Zinc Stress 1 TAB PO SCH (08:05)
[2022-09-24] MEDS: CO Q-10 CAPSULE 100 MG PO SCH (08:05)
[2022-09-24] MEDS: Atorvastatin Calcium 10 MG TAB PO SCH (08:05)
[2022-09-24] MEDS: Nystatin 500,000 UNITS/5 ML UDCUP SSW SCH ×4 (08:05→20:53)
[2022-09-24] MEDS: Cholecalciferol (Vitamin D3) 400 UNITS TAB PO SCH (08:05)
[2022-09-24] MEDS: VANCOMYCIN 1.75 GM/500 ML BAG 1.75 GM in Premix Bag 1 BAG IVPB SCH (09:07)
[2022-09-24] MEDS: Morphine 4 MG/ML VIAL SLOW IVP PRN (13:40)
[2022-09-24] MEDS ORDERED: diphenhydrAMINE 25 MG CAP PO SCH (20:00)
[2022-09-24] MEDS: Temazepam 15 MG CAP PO SCH (20:53)
[2022-09-25] MEDS: HYDROcodone/Acetaminophen 10/325 mg Tablet PO PRN ×4 (04:57→20:09)
[2022-09-25] MEDS: Nicotine 21 MG PATCH TD SCH (05:00)
[2022-09-25] MEDS: HumaLOG 300 UNITS/3 ML VIAL SC PRN ×4 (05:43→20:15)
[2022-09-25 06:20] LABS: #Eosinphils 0.2 thou/uL (0.0-0.7); #Lymphocytes 0.9 thou/uL (1.20-3.40); #Monocytes 0.6 thou/uL (0.11-0.59); #Neutrophils 4.8 thou/uL (1.40-6.50); %Basophils 0.4 % (0.0-1.0); %Eosinophils 3.6 % (0.0-10.0); %Lymphocytes 14.2 % (21.0-51.0); %Monocytes 8.7 % (0.0-10.0); Hemoglobin 13.5 g/dL (14.0-18.0); Mean Corpuscular HGB CONC 33.8 g/dL (32.0-36.0); Mean Corpuscular Hemoglobin 33.9 pg (27.0-31.0); Mean Platelet Volume 8.5 fL (7.4-10.4); Platelet Count 104 10x3/uL (130-400); RBC Distribution Width 11.6 % (11.5-14.5); Red Blood Cell (RBC) Count 3.98 mill/uL (4.70-6.10); White Blood Cell (WBC) Count 6.6 10x3/uL (4.8-10.8)
[2022-09-25 06:34] LABS: Anion Gap 11 mmol/L (10-20); BUN (Urea Nitrogen) 17 mg/dL (8.4-25.7); CRP (Inflammatory) 3.51 mg/dL (= or < 0.5); Calc. Creatinine Clearance 114 mL/min (70-130); Calcium 8.6 mg/dL (7.8-10.44); Carbon Dioxide 30 mmol/L (23-31); Chloride 98 mmol/L (98-107); Estimated GFR 99; Glucose 235 mg/dL (80-115); Potassium 4.5 mmol/L (3.5-5.1); Sodium 134 mmol/L (136-145)
[2022-09-25] MEDS: Cefepime 2 GM in Sodium Chloride 0.9% 100 ML IVPB SCH (08:30)
[2022-09-25] MEDS: Cholecalciferol (Vitamin D3) 400 UNITS TAB PO SCH (08:31)
[2022-09-25] MEDS: Nystatin 500,000 UNITS/5 ML UDCUP SSW SCH ×4 (08:31→20:12)
[2022-09-25] MEDS: Multivitamin w/Zinc Stress 1 TAB PO SCH (08:31)
[2022-09-25] MEDS: Lisinopril/Hydrochlorothiazide 20/25 mg Tablet PO SCH (08:31)
[2022-09-25] MEDS: glipiZIDE 10 MG TAB PO SCH (08:31)
[2022-09-25] MEDS: Atorvastatin Calcium 10 MG TAB PO SCH (08:31)
[2022-09-25] MEDS: Cyanocobalamin (Vitamin B-12) 1,000 MCG TAB PO SCH (08:31)
[2022-09-25] MEDS: Mometasone 200 MCG/Formoterol 5 MCG 120 PUFF INHALER INH SCH ×2 (08:32→19:07)
[2022-09-25] MEDS: CO Q-10 CAPSULE 100 MG PO SCH (08:32)
[2022-09-25] MEDS: Acetaminophen 325 MG TAB PO PRN (12:13)
[2022-09-25] MEDS: Temazepam 15 MG CAP PO SCH (20:09)
[2022-09-26] MEDS: HYDROcodone/Acetaminophen 10/325 mg Tablet PO PRN ×5 (03:40→22:09)
[2022-09-26] MEDS: Nicotine 21 MG PATCH TD SCH (05:27)
[2022-09-26] MEDS: HumaLOG 300 UNITS/3 ML VIAL SC PRN ×4 (05:32→22:10)
[2022-09-26] MEDS: Nystatin 500,000 UNITS/5 ML UDCUP SSW SCH ×4 (08:37→20:13)
[2022-09-26] MEDS: Lisinopril/Hydrochlorothiazide 20/25 mg Tablet PO SCH (08:37)
[2022-09-26] MEDS: Atorvastatin Calcium 10 MG TAB PO SCH (08:37)
[2022-09-26] MEDS: Cholecalciferol (Vitamin D3) 400 UNITS TAB PO SCH (08:37)
[2022-09-26] MEDS: CO Q-10 CAPSULE 100 MG PO SCH (08:37)
[2022-09-26] MEDS: Cyanocobalamin (Vitamin B-12) 1,000 MCG TAB PO SCH (08:37)
[2022-09-26] MEDS: glipiZIDE 10 MG TAB PO SCH (08:37)
[2022-09-26] MEDS: Multivitamin w/Zinc Stress 1 TAB PO SCH (08:37)
[2022-09-26] MEDS: Mometasone 200 MCG/Formoterol 5 MCG 120 PUFF INHALER INH SCH ×2 (08:52→18:38)
[2022-09-26] MEDS: Temazepam 15 MG CAP PO SCH (20:12)
[2022-09-27] MEDS: HYDROcodone/Acetaminophen 10/325 mg Tablet PO PRN ×3 (05:50→17:15)
[2022-09-27] MEDS: Nicotine 21 MG PATCH TD SCH (05:51)
[2022-09-27] MEDS: HumaLOG 300 UNITS/3 ML VIAL SC PRN ×3 (05:54→17:19)
[2022-09-27] MEDS: Mometasone 200 MCG/Formoterol 5 MCG 120 PUFF INHALER INH SCH ×2 (07:34→18:54)
[2022-09-27] MEDS: Lisinopril/Hydrochlorothiazide 20/25 mg Tablet PO SCH (09:43)
[2022-09-27] MEDS: CO Q-10 CAPSULE 100 MG PO SCH (09:43)
[2022-09-27] MEDS: Multivitamin w/Zinc Stress 1 TAB PO SCH (09:44)
[2022-09-27] MEDS: Cyanocobalamin (Vitamin B-12) 1,000 MCG TAB PO SCH (09:44)
[2022-09-27] MEDS: glipiZIDE 10 MG TAB PO SCH (09:44)
[2022-09-27] MEDS: Atorvastatin Calcium 10 MG TAB PO SCH (09:44)
[2022-09-27] MEDS: Cholecalciferol (Vitamin D3) 400 UNITS TAB PO SCH (09:45)
[2022-09-27] MEDS: Nystatin 500,000 UNITS/5 ML UDCUP SSW SCH ×3 (09:45→17:15)
[2022-09-27 17:17] VITALS: BP 124/74; TEMP 97.9
== END 2022-09-27 19:06 | disposition home or self-care (01) | DRG 481 ==
LOC: ERS 06:02 → ERHOLD 12:28 → SURG A 18:26 → OBSVTOIN 09-21 15:57
PROVIDERS: ADMIT Student in an Organized Health Care Education/Training Program; ATTEND Hospitalist
PROC: 0QS704Z Reposition Left Upper Femur with Internal Fixation Device, Open Approach (ICD-10-PCS; principal; 2022-09-23)
DX: S72.002A Fracture of unspecified part of neck of left femur, initial encounter for closed fracture (principal); E87.1 Hypo-osmolality and hyponatremia; Z88.8 Allergy status to other drugs, medicaments and biological substances; E11.51 Type 2 diabetes mellitus with diabetic peripheral angiopathy without gangrene; I10 Essential (primary) hypertension; D69.6 Thrombocytopenia, unspecified; F90.9 Attention-deficit hyperactivity disorder, unspecified type; J44.9 Chronic obstructive pulmonary disease, unspecified; E78.5 Hyperlipidemia, unspecified; F17.210 Nicotine dependence, cigarettes, uncomplicated; Z20.822 Contact with and (suspected) exposure to COVID-19; W01.0XXA Fall on same level from slipping, tripping and stumbling without subsequent striking against object, initial encounter; E11.65 Type 2 diabetes mellitus with hyperglycemia; E87.5 Hyperkalemia; Z79.82 Long term (current) use of aspirin; Z79.899 Other long term (current) drug therapy; Z98.1 Arthrodesis status; Z90.49 Acquired absence of other specified parts of digestive tract
CPT/HCPCS: 36415; 36416; 71045; 72170; 72192; 72197; 80048; 80053; 80202; 81001; 83605; 83735; 84145; 85025; 86140; 87040; 94664; 96372; 96374; 96376; A9579; C1713; G0378; J0692; J1100; J1650; J1815; J1885; J2270; J2405; J2704; J3010; J3370; J3475; J3490; J7030; J7050

== ENCOUNTER 2022-10-06 10:42 | Emergency (ER) | payer OTHER ==
[2022-10-06] MEDS ORDERED: Ketorolac Tromethamine 30 MG/ML VIAL ONE (12:22)
== END 2022-10-06 13:04 | disposition home or self-care (01) ==
LOC: ERS 10:42
DX: M25.552 Pain in left hip (principal); G62.9 Polyneuropathy, unspecified; J44.9 Chronic obstructive pulmonary disease, unspecified; I10 Essential (primary) hypertension; E11.9 Type 2 diabetes mellitus without complications; F17.210 Nicotine dependence, cigarettes, uncomplicated
CPT/HCPCS: 96372; J1885

== ENCOUNTER 2023-06-29 15:28 | Inpatient (IN) | payer OTHER ==
[2023-06-29 16:16] LABS: #Basophils 0.1 thou/uL (0.0-0.2); #Eosinphils 0.1 thou/uL (0.0-0.7); #Monocytes 0.7 thou/uL (0.11-0.59); #Neutrophils 8.5 thou/uL (1.40-6.50); %Basophils 0.4 % (0.0-1.0); %Eosinophils 0.7 % (0.0-10.0); %Lymphocytes 16.4 % (21.0-51.0); %Monocytes 6.2 % (0.0-10.0); Hematocrit 51.8 % (42.0-52.0); Hemoglobin 17.9 g/dL (14.0-18.0); Mean Corpuscular HGB CONC 34.6 g/dL (32.0-36.0); Mean Corpuscular Hemoglobin 33.3 pg (27.0-31.0); Mean Corpuscular Volume 96.5 fl (78.0-98.0); Mean Platelet Volume 10.4 fL (7.4-10.4); Platelet Count 144 10x3/uL (130-400); Red Blood Cell (RBC) Count 5.37 mill/uL (4.70-6.10); White Blood Cell (WBC) Count 11.1 10x3/uL (4.8-10.8)
[2023-06-29 16:42] LABS: ALT (SGPT) 47 U/L (8-55); AST (SGOT) 31 U/L (5-34); Albumin 3.7 g/dL (3.4-4.8); Alkaline Phosphatase 76 U/L (40-110); Anion Gap 12 mmol/L (10-20); BUN (Urea Nitrogen) 30 mg/dL (8.4-25.7); Calc. Creatinine Clearance 0 mL/min (70-130); Calcium 9.2 mg/dL (7.8-10.44); Carbon Dioxide 32 mmol/L (23-31); Chloride 95 mmol/L (98-107); Estimated GFR 69; Globulin 3.2 g/dL (2.4-3.5); Glucose 262 mg/dL (80-115); Potassium 4.5 mmol/L (3.5-5.1); Protein, Total 6.9 g/dL (5.8-8.1); Sodium 134 mmol/L (136-145)
[2023-06-29 16:45] LABS: Troponin I 0.023 ng/mL (< 0.028)
[2023-06-29 17:04] LABS: SARS-CoV-2 NAA Rapid Test Not Detected (NotDetected)
[2023-06-29] MEDS ORDERED: Albuterol 2.5 MG (3 mL) NEB ONE (17:39)
[2023-06-29] MEDS ORDERED: Ipratropium/Albuterol 3 ML NEB ONE (17:39)
[2023-06-29] MEDS ORDERED: Dextrose 5% in Water 1,000 ML IV PRN (18:08)
[2023-06-29] MEDS ORDERED: Ipratropium/Albuterol 3 ML NEB NEB PRN (18:08)
[2023-06-29] MEDS ORDERED: Glucagon 1 MG/ML KIT IM PRN (18:08)
[2023-06-29] MEDS ORDERED: Dextrose 50% Abboject 50 ML SYRINGE SLOW IVP PRN (18:08)
[2023-06-29] MEDS ORDERED: Acetaminophen 325 MG TAB PO PRN (18:08)
[2023-06-29] MEDS ORDERED: predniSONE 20 MG TAB PO SCH (18:30)
[2023-06-29 19:30] LABS: Lactic Acid 1.8 mmol/L (0.5-2.2)
[2023-06-29] MEDS: Nicotine 14 MG PATCH TD SCH (20:01)
[2023-06-29] MEDS: guaiFENesin/Codeine 200 mg/20 mg 10 ml Cup PO PRN (20:02)
[2023-06-29] MEDS: Temazepam 15 MG CAP PO SCH (20:02)
[2023-06-29] MEDS: Famotidine 20 MG TAB PO SCH (20:02)
[2023-06-29 20:15] VITALS: BMI 25.1
[2023-06-29] MEDS: Fioricet 325/50/40 mg Tablet PO PRN (20:27)
[2023-06-29] MEDS: Insulin Regular 300 UNITS/3 ML VIAL SC PRN (22:24)
[2023-06-30] MEDS: guaiFENesin/Codeine 200 mg/20 mg 10 ml Cup PO PRN ×4 (01:31→20:24)
[2023-06-30] MEDS: Fioricet 325/50/40 mg Tablet PO PRN ×4 (01:31→20:24)
[2023-06-30 05:00] LABS: #Monocytes 0.2 thou/uL (0.11-0.59); #Neutrophils 5.4 thou/uL (1.40-6.50); %Basophils 0.2 % (0.0-1.0); %Lymphocytes 8.9 % (21.0-51.0); %Monocytes 2.5 % (0.0-10.0); %Neutrophils 88.1 % (42.0-75.0); Hematocrit 47.1 % (42.0-52.0); Hemoglobin 15.9 g/dL (14.0-18.0); Mean Corpuscular HGB CONC 33.8 g/dL (32.0-36.0); Mean Corpuscular Hemoglobin 33.4 pg (27.0-31.0); Mean Corpuscular Volume 98.9 fl (78.0-98.0); Mean Platelet Volume 10.4 fL (7.4-10.4); Platelet Count 111 10x3/uL (130-400); RBC Distribution Width 11.9 % (11.5-14.5); Red Blood Cell (RBC) Count 4.76 mill/uL (4.70-6.10); White Blood Cell (WBC) Count 6.1 10x3/uL (4.8-10.8)
[2023-06-30 05:22] LABS: Anion Gap 8 mmol/L (10-20); BUN (Urea Nitrogen) 22 mg/dL (8.4-25.7); Calc. Creatinine Clearance 77 mL/min (70-130); Calcium 8.8 mg/dL (7.8-10.44); Carbon Dioxide 32 mmol/L (23-31); Chloride 97 mmol/L (98-107); Estimated GFR 79; Glucose 388 mg/dL (80-115); Potassium 4.9 mmol/L (3.5-5.1); Sodium 132 mmol/L (136-145)
[2023-06-30] MEDS: Insulin Regular 300 UNITS/3 ML VIAL SC PRN (06:50)
[2023-06-30] MEDS: predniSONE 20 MG TAB PO SCH (09:23)
[2023-06-30] MEDS: metFORMIN 500 MG TAB PO SCH ×2 (09:23→17:36)
[2023-06-30] MEDS: Atorvastatin Calcium 10 MG TAB PO SCH (09:23)
[2023-06-30] MEDS: Famotidine 20 MG TAB PO SCH ×2 (09:24→20:24)
[2023-06-30] MEDS ORDERED: Insulin Regular 300 UNITS/3 ML VIAL SC PRN ×2 (11:03)
[2023-06-30] MEDS ORDERED: glipiZIDE 10 MG TAB PO SCH (11:15)
[2023-06-30] MEDS: Nicotine 14 MG PATCH TD SCH (17:36)
[2023-06-30] MEDS: Doxycycline 100 MG CAP PO SCH (20:23)
[2023-06-30] MEDS: Temazepam 15 MG CAP PO SCH (20:24)
[2023-06-30] MEDS: Heparin 5,000 UNITS/ML VIAL SC SCH (20:25)
[2023-07-01] MEDS: Fioricet 325/50/40 mg Tablet PO PRN ×3 (02:42→15:29)
[2023-07-01] MEDS: guaiFENesin/Codeine 200 mg/20 mg 10 ml Cup PO PRN ×3 (02:42→15:29)
[2023-07-01] MEDS: Insulin Regular 300 UNITS/3 ML VIAL SC PRN ×2 (05:07→13:42)
[2023-07-01 05:26] LABS: #Eosinphils 0.1 thou/uL (0.0-0.7); #Monocytes 0.6 thou/uL (0.11-0.59); #Neutrophils 5.2 thou/uL (1.40-6.50); %Basophils 0.2 % (0.0-1.0); %Eosinophils 0.8 % (0.0-10.0); %Lymphocytes 30.4 % (21.0-51.0); %Neutrophils 61.2 % (42.0-75.0); Hematocrit 47.9 % (42.0-52.0); Hemoglobin 16.4 g/dL (14.0-18.0); Mean Corpuscular HGB CONC 34.2 g/dL (32.0-36.0); Mean Corpuscular Hemoglobin 33.5 pg (27.0-31.0); Mean Platelet Volume 10.3 fL (7.4-10.4); Platelet Count 128 10x3/uL (130-400); RBC Distribution Width 11.8 % (11.5-14.5); Red Blood Cell (RBC) Count 4.89 mill/uL (4.70-6.10); White Blood Cell (WBC) Count 8.5 10x3/uL (4.8-10.8)
[2023-07-01 05:52] LABS: Anion Gap 10 mmol/L (10-20); BUN (Urea Nitrogen) 19 mg/dL (8.4-25.7); Calc. Creatinine Clearance 87 mL/min (70-130); Calcium 8.8 mg/dL (7.8-10.44); Carbon Dioxide 32 mmol/L (23-31); Chloride 98 mmol/L (98-107); Estimated GFR 90; Glucose 175 mg/dL (80-115); Magnesium 1.8 mg/dL (1.6-2.6); Potassium 4.2 mmol/L (3.5-5.1); Sodium 136 mmol/L (136-145)
[2023-07-01] MEDS ORDERED: glipiZIDE 10 MG TAB PO SCH (07:30)
[2023-07-01] MEDS: metFORMIN 500 MG TAB PO SCH (08:18)
[2023-07-01] MEDS: Heparin 5,000 UNITS/ML VIAL SC SCH (08:19)
[2023-07-01] MEDS: predniSONE 20 MG TAB PO SCH (08:19)
[2023-07-01] MEDS: Famotidine 20 MG TAB PO SCH (08:19)
[2023-07-01] MEDS: Atorvastatin Calcium 10 MG TAB PO SCH (08:19)
[2023-07-01] MEDS: Doxycycline 100 MG CAP PO SCH (08:19)
[2023-07-01 08:39] VITALS: TEMP 97.8
[2023-07-01] MEDS ORDERED: Magnesium 2 GM/50 ML(in water) 2 GM in Premix 1 BAG IVPB SCH (09:00)
[2023-07-01] MEDS ORDERED: Aspirin 81 mg Enteric Coated Tablet PO SCH (09:00)
[2023-07-01 13:21] VITALS: BP 147/91
== END 2023-07-01 16:05 | disposition home or self-care (01) | DRG 189 ==
LOC: ERS 15:28 → SURG B 17:39 → OBSVTOIN 07-01 08:53
PROVIDERS: ADMIT Internal Medicine; ATTEND Internal Medicine
DX: J96.21 Acute and chronic respiratory failure with hypoxia (principal); J44.1 Chronic obstructive pulmonary disease with (acute) exacerbation; I10 Essential (primary) hypertension; F17.210 Nicotine dependence, cigarettes, uncomplicated; E11.51 Type 2 diabetes mellitus with diabetic peripheral angiopathy without gangrene; I45.10 Unspecified right bundle-branch block; I48.0 Paroxysmal atrial fibrillation; E11.65 Type 2 diabetes mellitus with hyperglycemia; T38.0X5A Adverse effect of glucocorticoids and synthetic analogues, initial encounter; F90.9 Attention-deficit hyperactivity disorder, unspecified type; Z98.890 Other specified postprocedural states; Z90.49 Acquired absence of other specified parts of digestive tract; Z88.8 Allergy status to other drugs, medicaments and biological substances; Z11.52 Encounter for screening for COVID-19; Z79.84 Long term (current) use of oral hypoglycemic drugs; Z79.899 Other long term (current) drug therapy
CPT/HCPCS: 36415; 36416; 71045; 80048; 80053; 83605; 83735; 83880; 84484; 85025; 93005; 96360; G0378; J1815; J3475; J7512; J7611; J7620

== ENCOUNTER 2023-07-20 12:31 | Emergency (ER) | payer OTHER ==
[2023-07-20] MEDS ORDERED: Morphine 4 MG/ML VIAL ONE (13:16)
[2023-07-20] MEDS ORDERED: Ondansetron PF 4 MG/2 ML Vial ONE (13:17)
[2023-07-20 13:29] LABS: #Monocytes 0.6 thou/uL (0.11-0.59); #Neutrophils 5.7 thou/uL (1.40-6.50); %Basophils 0.4 % (0.0-1.0); %Eosinophils 0.5 % (0.0-10.0); %Lymphocytes 17.7 % (21.0-51.0); %Monocytes 7.8 % (0.0-10.0); %Neutrophils 73.3 % (42.0-75.0); Hematocrit 51.5 % (42.0-52.0); Mean Corpuscular Hemoglobin 33.1 pg (27.0-31.0); Mean Corpuscular Volume 94.8 fl (78.0-98.0); Mean Platelet Volume 10.2 fL (7.4-10.4); Platelet Count 161 10x3/uL (130-400); RBC Distribution Width 12.1 % (11.5-14.5); Red Blood Cell (RBC) Count 5.43 mill/uL (4.70-6.10); White Blood Cell (WBC) Count 7.8 10x3/uL (4.8-10.8)
[2023-07-20 13:42] LABS: PTT 33.5 sec (22.9-36.1); Prothrombin Time 13.5 sec (12.0-14.7)
[2023-07-20 13:52] LABS: ALT (SGPT) 45 U/L (8-55); AST (SGOT) 38 U/L (5-34); Albumin 3.7 g/dL (3.4-4.8); Alkaline Phosphatase 76 U/L (40-110); Anion Gap 12 mmol/L (10-20); BUN (Urea Nitrogen) 26 mg/dL (8.4-25.7); Bilirubin, Total 0.9 mg/dL (0.2-1.2); Calc. Creatinine Clearance 0 mL/min (70-130); Calcium 9.1 mg/dL (7.8-10.44); Carbon Dioxide 27 mmol/L (23-31); Chloride 97 mmol/L (98-107); Estimated GFR 82; Globulin 3.4 g/dL (2.4-3.5); Glucose 299 mg/dL (80-115); Potassium 4.6 mmol/L (3.5-5.1); Protein, Total 7.1 g/dL (5.8-8.1); Sodium 131 mmol/L (136-145)
== END 2023-07-20 15:39 | disposition home or self-care (01) ==
LOC: ERS 12:31
DX: M79.604 Pain in right leg (principal); J44.9 Chronic obstructive pulmonary disease, unspecified; I10 Essential (primary) hypertension; I48.91 Unspecified atrial fibrillation; E11.9 Type 2 diabetes mellitus without complications; F17.210 Nicotine dependence, cigarettes, uncomplicated; Z79.84 Long term (current) use of oral hypoglycemic drugs; Z79.899 Other long term (current) drug therapy; Z55.6 Problems related to health literacy
CPT/HCPCS: 80053; 83605; 85025; 85610; 85730; 94760; 96374; 96375; J2270; J2405

== ENCOUNTER 2023-08-07 09:38 | Outpatient (CLI) | payer MEDICARE, OTHER | END 2023-08-07 09:39 | disposition home or self-care (01) | LOC: RAD 09:38 | PROVIDERS: ATTEND Internal Medicine Critical Care Medicine | DX: R06.00 Dyspnea, unspecified (principal); R91.8 Other nonspecific abnormal finding of lung field | CPT/HCPCS: 71046 ==

== ENCOUNTER 2023-08-19 18:14 | Inpatient (IN) | payer OTHER, MEDICAID ==
[~2023-08-19 18:14] MED LIST changes: -Iopamidol-370 76% 500 ML 1 ML ONE; +Iopamidol-370 76% 500 ML MDV (1 ML CHARGE) ONE
[2023-08-19 19:09] LABS: ALT (SGPT) 86 U/L (8-55); AST (SGOT) 62 U/L (5-34); Albumin 4.3 g/dL (3.4-4.8); Alkaline Phosphatase 87 U/L (40-110); Anion Gap 19 mmol/L (10-20); BUN (Urea Nitrogen) 59 mg/dL (8.4-25.7); Bilirubin, Total 1.1 mg/dL (0.2-1.2); Calc. Creatinine Clearance 0 mL/min (70-130); Calcium 10.7 mg/dL (7.8-10.44); Carbon Dioxide 30 mmol/L (23-31); Chloride 84 mmol/L (98-107); Estimated GFR 42; Globulin 3.9 g/dL (2.4-3.5); Glucose 384 mg/dL (80-115); Lipase 33 U/L (8-78); Magnesium 2.5 mg/dL (1.6-2.6); Potassium 4.9 mmol/L (3.5-5.1); Protein, Total 8.2 g/dL (5.8-8.1); Sodium 128 mmol/L (136-145)
[2023-08-19 19:20] LABS: Troponin I 0.034 ng/mL (< 0.028)
[2023-08-19 19:52] LABS: Bacteria/HPF None Seen HPF (None Seen); Bilirubin Negative (Negative); Blood, Urine Negative (Negative); CAUTI Indications for Culture Pelvic or flank pain; Clarity Clear (Clear); Glucose, Urine (Dipstick) Greater than 1000 mg/dL (Negative); Ketone, Urine Negative (Negative); Leukocyte Negative Leu/uL (Negative); Nitrite Negative (Negative); Protein, Urine (Dipstick) Negative (Neg-Trace); RBC/HPF 0-3 HPF (0-3); Specific Gravity, Urine 1.023 (1.002-1.036); Squamous Epithelial None Seen HPF (0-3); Urobilinogen Normal mg/dL (Less than 2); WBC/HPF 0-3 HPF (0-3)
[2023-08-19 19:53] LABS: Urine Culture Reflex No No
[2023-08-19] MEDS ORDERED: Ketorolac Tromethamine 30 MG (1 mL) VIAL ONE (20:42)
[2023-08-19 21:40] LABS: Influenza A by NAA Not Detected (NotDetected); Influenza B by NAA Not Detected (NotDetected); SARS-CoV-2 NAA Rapid Test Not Detected (NotDetected)
[2023-08-19 22:40] LABS: Troponin I 0.039 ng/mL (< 0.028)
[2023-08-19] MEDS ORDERED: Ondansetron PF 4 MG/2 ML Vial IVP PRN (22:51)
[2023-08-19] MEDS ORDERED: Glucagon 1 MG/ML KIT IM PRN (23:03)
[2023-08-19] MEDS ORDERED: Dextrose 5% in Water 1,000 ML IV PRN (23:03)
[2023-08-19] MEDS ORDERED: Dextrose 50% Abboject 50 ML SYRINGE SLOW IVP PRN (23:03)
[2023-08-19] MEDS ORDERED: Ipratropium/Albuterol 3 ML NEB NEB PRN (23:04)
[2023-08-19 23:33] VITALS: BMI 23.5
[2023-08-20] MEDS ORDERED: Albuterol 200 PUFF INH INH PRN (00:10)
[2023-08-20 00:19] LABS: #Basophils 0.05 10x3/uL (0.0-0.2); %Basophils 0.6 % (0.0-1.0); %Eosinophils 1.6 % (0.0-10.0); %Lymphocytes 23.2 % (21.0-51.0); %Monocytes 10.1 % (0.0-10.0); %Neutrophils 64.3 % (42.0-75.0); Hematocrit 53.8 % (42.0-52.0); Hemoglobin 18.7 g/dL (14.0-18.0); Mean Corpuscular HGB CONC 34.8 g/dL (32.0-36.0); Mean Corpuscular Hemoglobin 33.1 pg (27.0-31.0); Mean Corpuscular Volume 95.2 fL (78.0-98.0); Mean Platelet Volume 10.7 fL (7.4-10.4); Platelet Count 146 10x3/uL (130-400); RBC Distribution Width 12.2 % (11.5-14.5); Red Blood Cell (RBC) Count 5.65 mill/uL (4.70-6.10)
[2023-08-20] MEDS: HumaLOG 300 UNITS/3 ML VIAL SC PRN ×2 (00:35→10:03)
[2023-08-20] MEDS: methylPREDNISolone Sod Succ 40 MG VIAL IVP SCH ×2 (00:38→20:51)
[2023-08-20 01:15] LABS: Troponin I 0.045 ng/mL (< 0.028)
[2023-08-20 04:28] LABS: #Basophils Less than 0.03 10x3/uL (0.0-0.2); %Basophils 0.3 % (0.0-1.0); %Eosinophils 0.7 % (0.0-10.0); %Lymphocytes 11.1 % (21.0-51.0); %Monocytes 4.2 % (0.0-10.0); %Neutrophils 83.3 % (42.0-75.0); Hematocrit 55.3 % (42.0-52.0); Hemoglobin 19.3 g/dL (14.0-18.0); Mean Corpuscular HGB CONC 34.9 g/dL (32.0-36.0); Mean Corpuscular Hemoglobin 32.8 pg (27.0-31.0); Mean Platelet Volume 10.6 fL (7.4-10.4); Platelet Count 148 10x3/uL (130-400); Red Blood Cell (RBC) Count 5.88 mill/uL (4.70-6.10)
[2023-08-20 04:40] LABS: Anion Gap 16 mmol/L (10-20); BUN (Urea Nitrogen) 59 mg/dL (8.4-25.7); Calc. Creatinine Clearance 61 mL/min (70-130); Calcium 9.8 mg/dL (7.8-10.44); Carbon Dioxide 27 mmol/L (23-31); Chloride 93 mmol/L (98-107); Estimated GFR 61; Glucose 142 mg/dL (80-115); Potassium 4.3 mmol/L (3.5-5.1); Sodium 132 mmol/L (136-145)
[2023-08-20] MEDS: Enoxaparin 40 MG (0.4 mL) SYRINGE SC SCH (08:31)
[2023-08-20] MEDS: Famotidine 20 MG TAB PO SCH (08:31)
[2023-08-20] MEDS ORDERED: TEMAZEPAM 30 MG PO PRN (08:37)
[2023-08-20] MEDS: glipiZIDE 10 MG TAB PO SCH (09:59)
[2023-08-20] MEDS: Lisinopril 20 MG TAB PO SCH (09:59)
[2023-08-20] MEDS: Hydrochlorothiazide 25 MG TAB PO SCH (09:59)
[2023-08-20] MEDS: Atorvastatin Calcium 10 MG TAB PO SCH (09:59)
[2023-08-20] MEDS: Aspirin 81 mg Enteric Coated Tablet PO SCH (10:00)
[2023-08-20] MEDS: HYDROcodone/Acetaminophen 5/325 mg Tablet PO PRN (10:21)
[2023-08-20 17:38] LABS: Amphetamine Detected (NotDetected); Barbiturates Screen Not Detected (NotDetected); Benzodiazepine Screen Detected (NotDetected); Cocaine Metabolite Screen Not Detected (NotDetected); Methadone Not Detected (NotDetected); Methamphetamine Not Detected (NotDetected); Opiate Screen Detected (NotDetected); Oxycodone Screen Not Detected (NotDetected); Phencyclidine (PCP) Not Detected (NotDetected); THC/Cannabinoid Screen Not Detected (NotDetected); Tricyclic Screen Not Detected (NotDetected)
[2023-08-20] MEDS: Nicotine 14 MG PATCH TD SCH (18:31)
[2023-08-20] MEDS: Mometasone 100 MCG/Formoterol 5 MCG 120 PUFF INHALER INH SCH (19:32)
[2023-08-20 19:40] LABS: Glucose 635 mg/dL (80-115)
[2023-08-20] MEDS: Insulin NPH Human Isophane 100 UNITS/ML (10 ML VIAL) SC SCH (20:47)
[2023-08-20 20:56] LABS: Actual Bicarbonate (HCO3v) 29.8 mEq/L (22-28); Calcium, Ionized (venous) 1.07 mmol/L (1.16-1.32); Chloride (VBG) 84 mmol/L (98-106); Hematocrit-VBG 57 % (42.0-52.0); Hemoglobin (Hb) 19.5 g/dL (12.6-17.4); Potassium (VBG) 4.88 mmol/L (3.70-5.30); Sodium 126 mmol/L (133-146); pH (venous) 7.374 (7.32-7.43)
[2023-08-20] MEDS: Fioricet 325/50/40 mg Tablet PO PRN (21:01)
[2023-08-20] MEDS: Temazepam 15 MG CAP PO PRN (21:08)
[2023-08-20 22:08] LABS: Anion Gap 14 mmol/L (10-20); BUN (Urea Nitrogen) 57 mg/dL (8.4-25.7); Calc. Creatinine Clearance 48 mL/min (70-130); Calcium 9.2 mg/dL (7.8-10.44); Carbon Dioxide 27 mmol/L (23-31); Chloride 87 mmol/L (98-107); Estimated GFR 47; Potassium 4.4 mmol/L (3.5-5.1); Sodium 124 mmol/L (136-145)
[2023-08-20 22:29] LABS: Glucose 568 mg/dL (80-115)
[2023-08-20] MEDS ORDERED: HumaLOG 300 UNITS/3 ML VIAL SC PRN (22:35)
[2023-08-21 04:35] LABS: #Basophils Less than 0.03 10x3/uL (0.0-0.2); #Eosinphils Less than 0.03 10x3/uL (0.0-0.7); %Basophils 0.1 % (0.0-1.0); %Lymphocytes 7.5 % (21.0-51.0); %Monocytes 5.9 % (0.0-10.0); %Neutrophils 85.9 % (42.0-75.0); Hematocrit 54.3 % (42.0-52.0); Hemoglobin 19.5 g/dL (14.0-18.0); Mean Corpuscular HGB CONC 35.9 g/dL (32.0-36.0); Mean Corpuscular Hemoglobin 33.2 pg (27.0-31.0); Mean Corpuscular Volume 92.5 fL (78.0-98.0); Mean Platelet Volume 10.8 fL (7.4-10.4); Platelet Count 148 10x3/uL (130-400); RBC Distribution Width 11.6 % (11.5-14.5); Red Blood Cell (RBC) Count 5.87 mill/uL (4.70-6.10)
[2023-08-21 04:39] LABS: Anion Gap 14 mmol/L (10-20); BUN (Urea Nitrogen) 55 mg/dL (8.4-25.7); Calc. Creatinine Clearance 72 mL/min (70-130); Calcium 9.4 mg/dL (7.8-10.44); Carbon Dioxide 29 mmol/L (23-31); Chloride 91 mmol/L (98-107); Estimated GFR 75; Glucose 213 mg/dL (80-115); Potassium 4.1 mmol/L (3.5-5.1); Sodium 130 mmol/L (136-145)
[2023-08-21] MEDS: VYVANSE 70 MG PO SCH (09:00)
[2023-08-21] MEDS: Gabapentin 300 MG CAP PO SCH (09:48)
[2023-08-21] MEDS: Insulin Glargine 30 UNITS/0.3 ML VIAL SC SCH ×2 (09:50→20:57)
[2023-08-21] MEDS: Empagliflozin 10 MG TAB PO SCH (09:53)
[2023-08-21 10:00] LABS: Hemoglobin A1c 11.2 % (4.0-6.0)
[2023-08-21 12:47] LABS: ANA Symphony (Qualitative) Negative (Negative); ANA Symphony (Quantitative) 0.3 Ratio (< 0.7 Negative); dsDNA IgG Antibody 1.3 IU/mL (<10 Negative)
[2023-08-21] MEDS: HumaLOG 300 UNITS/3 ML VIAL SC PRN (13:30)
[2023-08-21 19:49] LABS: Critical Call Chemistry NUR.KS17 @1949; Glucose 413 mg/dL (80-115)
[2023-08-22] MEDS: predniSONE 20 MG TAB PO SCH (08:58)
[2023-08-22] MEDS: Insulin Glargine 30 UNITS/0.3 ML VIAL SC SCH (09:14)
[2023-08-22 10:24] VITALS: BP 133/92
[2023-08-22 12:33] VITALS: TEMP 98.1
== END 2023-08-22 15:45 | disposition home or self-care (01) | DRG 196 ==
LOC: ERS 18:14 → OBSVTOIN 21:43 → IMCU/EMU 21:43
PROVIDERS: ADMIT Hospitalist; ATTEND Internal Medicine
DX: J84.112 Idiopathic pulmonary fibrosis (principal); J96.21 Acute and chronic respiratory failure with hypoxia; E87.1 Hypo-osmolality and hyponatremia; N17.9 Acute kidney failure, unspecified; E78.5 Hyperlipidemia, unspecified; Z59.00 Homelessness unspecified; E11.65 Type 2 diabetes mellitus with hyperglycemia; E11.51 Type 2 diabetes mellitus with diabetic peripheral angiopathy without gangrene; I27.21 Secondary pulmonary arterial hypertension; F17.200 Nicotine dependence, unspecified, uncomplicated; M54.2 Cervicalgia; I11.0 Hypertensive heart disease with heart failure; I50.9 Heart failure, unspecified; J47.9 Bronchiectasis, uncomplicated; R59.1 Generalized enlarged lymph nodes; G89.4 Chronic pain syndrome; T38.0X5A Adverse effect of glucocorticoids and synthetic analogues, initial encounter; I48.0 Paroxysmal atrial fibrillation; Z79.84 Long term (current) use of oral hypoglycemic drugs; Z79.899 Other long term (current) drug therapy; Z79.82 Long term (current) use of aspirin; Z90.49 Acquired absence of other specified parts of digestive tract
CPT/HCPCS: 36415; 36416; 71045; 71275; 80048; 80053; 80306; 81001; 82010; 82103; 82805; 83036; 83690; 83735; 83880; 84145; 84443; 84484; 85025; 86038; 86225; 93005; 93306; 96374; J1650; J1815; J1885; J2920; J7512; Q9967

== ENCOUNTER 2023-10-01 10:37 | Outpatient (CLI) | payer OTHER, MEDICAID | END 2023-10-01 10:38 | disposition home or self-care (01) | LOC: RAD 10:37 | PROVIDERS: ATTEND Internal Medicine Critical Care Medicine | DX: R06.00 Dyspnea, unspecified (principal); R91.8 Other nonspecific abnormal finding of lung field; J84.10 Pulmonary fibrosis, unspecified; J98.4 Other disorders of lung | CPT/HCPCS: 71046 ==

== ENCOUNTER 2023-10-02 18:53 | Emergency (ER) | payer OTHER | END 2023-10-02 22:57 | disposition home or self-care (01) | LOC: ERS 18:53 | DX: M79.605 Pain in left leg (principal); M79.604 Pain in right leg; M79.89 Other specified soft tissue disorders; R06.02 Shortness of breath; I11.0 Hypertensive heart disease with heart failure; I50.9 Heart failure, unspecified; E11.9 Type 2 diabetes mellitus without complications; J44.9 Chronic obstructive pulmonary disease, unspecified; I48.91 Unspecified atrial fibrillation; F17.210 Nicotine dependence, cigarettes, uncomplicated | CPT/HCPCS: 36415; 71045; 80053; 83605; 83880; 84484; 85025; 85610; 85730; 93005 ==

== ENCOUNTER 2023-10-09 18:47 | Inpatient (IN) | payer OTHER, MEDICAID ==
[2023-10-09] MEDS ORDERED: Furosemide 40 MG (4 mL) VIAL ONE (19:23)
[2023-10-09 19:24] LABS: #Basophils 0.05 10x3/uL (0.0-0.2); %Basophils 0.6 % (0.0-1.0); %Eosinophils 1.4 % (0.0-10.0); %Lymphocytes 17.6 % (21.0-51.0); %Monocytes 9.7 % (0.0-10.0); %Neutrophils 70.2 % (42.0-75.0); Hematocrit 50.9 % (42.0-52.0); Hemoglobin 17.5 g/dL (14.0-18.0); Mean Corpuscular HGB CONC 34.4 g/dL (32.0-36.0); Mean Corpuscular Hemoglobin 33.1 pg (27.0-31.0); Mean Corpuscular Volume 96.4 fL (78.0-98.0); Mean Platelet Volume 9.8 fL (7.4-10.4); Platelet Count 230 10x3/uL (130-400); RBC Distribution Width 15.3 % (11.5-14.5); Red Blood Cell (RBC) Count 5.28 mill/uL (4.70-6.10)
[2023-10-09 19:45] LABS: ALT (SGPT) 44 U/L (8-55); AST (SGOT) 43 U/L (5-34); Acetaminophen Less than 10 mcg/mL (10.0-30.0); Albumin 3.6 g/dL (3.4-4.8); Alcohol Less than 10.0 mg/dL (Less than 10); Alkaline Phosphatase 63 U/L (40-110); Anion Gap 17 mmol/L (10-20); BUN (Urea Nitrogen) 50 mg/dL (8.4-25.7); Bilirubin, Total 0.9 mg/dL (0.2-1.2); Calc. Creatinine Clearance 0 mL/min (70-130); Calcium 9.8 mg/dL (7.8-10.44); Carbon Dioxide 27 mmol/L (23-31); Chloride 92 mmol/L (98-107); Estimated GFR 52; Globulin 3.7 g/dL (2.4-3.5); Glucose 93 mg/dL (80-115); Magnesium 1.7 mg/dL (1.6-2.6); Potassium 3.9 mmol/L (3.5-5.1); Protein, Total 7.3 g/dL (5.8-8.1); Salicylate Less than 8.0 mg/dL (15.0-30.0); Sodium 132 mmol/L (136-145)
[2023-10-09 19:49] LABS: Troponin I 0.046 ng/mL (< 0.028)
[2023-10-09] MEDS ORDERED: Acetaminophen 325 MG TAB ONE (23:16)
[2023-10-09] MEDS ORDERED: Nicotine 14 MG PATCH ONE (23:16)
[2023-10-09] MEDS ORDERED: Aspirin Chewable 81 MG TAB ONE (23:17)
[2023-10-09] MEDS ORDERED: Acetaminophen 325 MG TAB PO PRN (23:31)
[2023-10-09] MEDS ORDERED: Ondansetron PF 4 MG/2 ML Vial IVP PRN (23:31)
[2023-10-09] MEDS ORDERED: Ondansetron ODT 4 MG TAB PO PRN (23:31)
[2023-10-09 23:49] LABS: Amphetamine Detected (NotDetected); Barbiturates Screen Not Detected (NotDetected); Benzodiazepine Screen Detected (NotDetected); Cocaine Metabolite Screen Not Detected (NotDetected); Methadone Not Detected (NotDetected); Methamphetamine Not Detected (NotDetected); Opiate Screen Not Detected (NotDetected); Oxycodone Screen Not Detected (NotDetected); Phencyclidine (PCP) Not Detected (NotDetected); THC/Cannabinoid Screen Not Detected (NotDetected); Tricyclic Screen Not Detected (NotDetected)
[2023-10-10 01:39] LABS: Troponin I 0.043 ng/mL (< 0.028)
[2023-10-10 02:13] VITALS: BMI 26.6
[2023-10-10 05:05] LABS: #Basophils 0.03 10x3/uL (0.0-0.2); %Basophils 0.4 % (0.0-1.0); %Eosinophils 1.9 % (0.0-10.0); %Lymphocytes 25.9 % (21.0-51.0); %Monocytes 10.3 % (0.0-10.0); %Neutrophils 61.4 % (42.0-75.0); Hematocrit 47.8 % (42.0-52.0); Mean Corpuscular HGB CONC 33.5 g/dL (32.0-36.0); Mean Corpuscular Hemoglobin 33.1 pg (27.0-31.0); Mean Platelet Volume 9.8 fL (7.4-10.4); Platelet Count 177 10x3/uL (130-400); RBC Distribution Width 15.3 % (11.5-14.5); Red Blood Cell (RBC) Count 4.83 mill/uL (4.70-6.10)
[2023-10-10 05:23] LABS: Anion Gap 14 mmol/L (10-20); BUN (Urea Nitrogen) 53 mg/dL (8.4-25.7); Calc. Creatinine Clearance 68 mL/min (70-130); Calcium 9.1 mg/dL (7.8-10.44); Carbon Dioxide 33 mmol/L (23-31); Chloride 90 mmol/L (98-107); Estimated GFR 62; Glucose 88 mg/dL (80-115); Magnesium 1.7 mg/dL (1.6-2.6); Potassium 3.1 mmol/L (3.5-5.1); Sodium 134 mmol/L (136-145); Troponin I 0.046 ng/mL (< 0.028)
[2023-10-10] MEDS: Furosemide 40 MG (4 mL) VIAL SLOW IVP SCH (05:55)
[2023-10-10] MEDS: Mometasone 200 MCG/Formoterol 5 MCG 120 PUFF INHALER INH SCH (07:22)
[2023-10-10] MEDS: Multivitamin w/Zinc Stress 1 TAB PO SCH (08:55)
[2023-10-10] MEDS: Cyanocobalamin (Vitamin B-12) 1,000 MCG TAB PO SCH (08:55)
[2023-10-10] MEDS: Vitamin E 400 UNITS CAP PO SCH (08:55)
[2023-10-10] MEDS: Gabapentin 300 MG CAP PO SCH ×4 (08:55→21:07)
[2023-10-10] MEDS: Potassium Chloride 20 MEQ TAB PO SCH (08:55)
[2023-10-10] MEDS: Hydrochlorothiazide 25 MG TAB PO SCH (08:56)
[2023-10-10] MEDS: Famotidine 20 MG TAB PO SCH (08:56)
[2023-10-10] MEDS: Famotidine/PF 20 mg/2ml Vial SLOW IVP SCH (08:56)
[2023-10-10] MEDS: Carvedilol 3.125 MG TAB PO SCH (08:57)
[2023-10-10] MEDS: Empagliflozin 10 MG TAB PO SCH (08:57)
[2023-10-10] MEDS: Aspirin 81 mg Enteric Coated Tablet PO SCH (08:57)
[2023-10-10] MEDS: Lisinopril 20 MG TAB PO SCH (08:57)
[2023-10-10] MEDS: Atorvastatin Calcium 10 MG TAB PO SCH (08:57)
[2023-10-10] MEDS: Insulin Glargine 30 UNITS/0.3 ML VIAL SC SCH (08:58)
[2023-10-10] MEDS ORDERED: Temazepam 15 MG CAP PO PRN (15:37)
[2023-10-10] MEDS: Fioricet 325/50/40 mg Tablet PO PRN (15:44)
[2023-10-10] MEDS: Ibuprofen 200 MG TAB PO PRN (21:09)
[2023-10-11 04:39] LABS: #Basophils 0.05 10x3/uL (0.0-0.2); %Basophils 0.8 % (0.0-1.0); %Eosinophils 2.9 % (0.0-10.0); %Lymphocytes 28.5 % (21.0-51.0); %Monocytes 10.4 % (0.0-10.0); %Neutrophils 57.2 % (42.0-75.0); Hematocrit 45.9 % (42.0-52.0); Hemoglobin 15.4 g/dL (14.0-18.0); Mean Corpuscular HGB CONC 33.6 g/dL (32.0-36.0); Mean Corpuscular Hemoglobin 32.4 pg (27.0-31.0); Mean Corpuscular Volume 96.4 fL (78.0-98.0); Mean Platelet Volume 9.7 fL (7.4-10.4); Platelet Count 179 10x3/uL (130-400); Red Blood Cell (RBC) Count 4.76 mill/uL (4.70-6.10)
[2023-10-11 05:05] LABS: Anion Gap 15 mmol/L (10-20); BUN (Urea Nitrogen) 48 mg/dL (8.4-25.7); Calc. Creatinine Clearance 62 mL/min (70-130); Calcium 8.8 mg/dL (7.8-10.44); Carbon Dioxide 29 mmol/L (23-31); Chloride 92 mmol/L (98-107); Estimated GFR 55; Glucose 159 mg/dL (80-115); Potassium 3.5 mmol/L (3.5-5.1); Sodium 132 mmol/L (136-145)
[2023-10-11] MEDS ORDERED: VYVANSE 70 MG PO SCH (09:00)
[2023-10-11] MEDS: Nicotine 14 MG PATCH TD PRN (12:30)
[2023-10-11] MEDS: Gabapentin 300 MG CAP PO SCH ×2 (15:09→20:57)
[2023-10-12 04:11] LABS: Anion Gap 12 mmol/L (10-20); BUN (Urea Nitrogen) 47 mg/dL (8.4-25.7); Calc. Creatinine Clearance 62 mL/min (70-130); Calcium 9.2 mg/dL (7.8-10.44); Carbon Dioxide 33 mmol/L (23-31); Chloride 90 mmol/L (98-107); Estimated GFR 55; Glucose 277 mg/dL (80-115); Potassium 3.8 mmol/L (3.5-5.1); Sodium 131 mmol/L (136-145)
[2023-10-12 10:51] VITALS: BP 111/66; TEMP 98
== END 2023-10-12 11:56 | disposition home or self-care (01) | DRG 280 ==
LOC: ERS 18:47 → 2NO 23:33 → OBSVTOIN 10-10 08:20
PROVIDERS: ADMIT Student in an Organized Health Care Education/Training Program; ATTEND Internal Medicine
DX: I13.0 Hypertensive heart and chronic kidney disease with heart failure and stage 1 through stage 4 chronic kidney disease, or unspecified chronic kidney disease (principal); I50.23 Acute on chronic systolic (congestive) heart failure; I21.A1 Myocardial infarction type 2; Z59.02 Unsheltered homelessness; J96.10 Chronic respiratory failure, unspecified whether with hypoxia or hypercapnia; E87.1 Hypo-osmolality and hyponatremia; J44.9 Chronic obstructive pulmonary disease, unspecified; E11.51 Type 2 diabetes mellitus with diabetic peripheral angiopathy without gangrene; I48.91 Unspecified atrial fibrillation; F17.210 Nicotine dependence, cigarettes, uncomplicated; N18.30 Chronic kidney disease, stage 3 unspecified; E11.22 Type 2 diabetes mellitus with diabetic chronic kidney disease; Z96.642 Presence of left artificial hip joint; Z88.8 Allergy status to other drugs, medicaments and biological substances; Z79.899 Other long term (current) drug therapy; Z79.82 Long term (current) use of aspirin; Z79.84 Long term (current) use of oral hypoglycemic drugs; Z79.2 Long term (current) use of antibiotics; Z90.49 Acquired absence of other specified parts of digestive tract; Z98.890 Other specified postprocedural states; Z89.421 Acquired absence of other right toe(s)
CPT/HCPCS: 36415; 36416; 71045; 80048; 80306; 80307; 83735; 83880; 84484; 85025; 93005; 93798; 96374; G0378; J1815; J1940